=== PATIENT | male | born 1935 | race Caucasian/White ===

== ENCOUNTER 2020-10-28 10:38 | Emergency (ER) | payer MEDICARE, BC ==
--- NOTE | 2020-10-28 11:03 | EDM.PDOC ---
ED HPI GENERAL MEDICAL PROBLEM - General Chief Complaint: Chest Pain Stated Complaint: SOB AND CHEST PRESSURE Time Seen by Provider: 10/28/20 11:00 - History of Present Illness INITIAL COMMENTS - FREE TEXT/NARRATIVE: 85-year-old male presents the emergency room with shortness of breath. This is been getting worse over the last week but is been kind of an ongoing issue for quite a long time. About a year and a half ago the patient had a valve procedure done without a valve replacement and this helped somewhat. He was seen by his regular physician not long ago and was told he had fluid around his heart and was started on a water pill this seems to be helping somewhat but again over the last week or so it has been getting worse. The patient does not know exactly what medications he is taking or what water pill he is taking. It appears the patient is on Plavix and aspirin from his old records were trying to get pharmacy reports of what medications he is currently taking. Middle Chest Pain Score (Numeric/FACES): 5 - Related Data Allergies Allergy/AdvReac Type Severity Reaction Status Date / Time No Known Allergies Allergy Verified 02/20/16 14:55 Home Meds: Home Meds Insulin Glarg,Human.Rec.Analog [Lantus] 10 unit SUBCUT QAM 05/10/14 [History] Levothyroxine [Synthroid] 112 mcg PO DAILY 05/10/14 [History] Tamsulosin [Flomax] 0.4 mg PO BID 05/10/14 [History] allopurinoL [Zyloprim] 50 mg PO DAILY 05/10/14 [History] Calc/D3/Mag/Zn/Kristin/Mc/Thoreau [Calcium 600 MG Plus Vit D] 1 tab PO DAILY 03/17/15 [History] Finasteride [Proscar] 5 mg PO DAILY 03/20/15 [History] Insulin Aspart [NovoLOG] 5 unit SQ TID 04/19/15 [History] Aspirin [Ecotrin EC] 81 mg PO DAILY 02/19/16 [History] Acetaminophen [Tylenol] 650 mg PO Q6H PRN #0 tablet 02/22/16 [Rx] Doxycycline [Vibramycin] 100 mg PO BID #14 tab 10/28/20 [Rx] Furosemide [Lasix] 40 mg PO DAILY 10/28/20 [History] Losartan [Cozaar] 50 mg PO DAILY 10/28/20 [History] Metoprolol Succinate [Toprol XL] 25 mg PO DAILY 10/28/20 [History] Sodium Bicarbonate 325 mg PO BID 10/28/20 [History] Past Medical History Other HEENT History: wears glasses, has upper partial Cardiovascular History: Reports: High Cholesterol, Hypertension Other Cardiovascular History: carotid artery occulsion and stenosis, murmur Other Gastrointestinal History: ostomy revision, colon resection Other Genitourinary History: renal insufficiency, urinary retention Neurological History: Reports: CVA, TIA Endocrine/Metabolic History: Reports: Diabetes, Type II, Hypothyroidism Oncologic (Cancer) History: Reports: Colon Other Dermatologic History: Pre-cancer lesion froze off recently - Infectious Disease History Infectious Disease History: Reports: Chicken Pox - Past Surgical History HEENT Surgical History: Reports: Cataract Surgery GI Surgical History: Reports: Colostomy Other Musculoskeletal Surgeries/Procedures:: back surgery 2004, carpal tunnel surgery 2013 Social & Family History - Family History Family Medical History: No Pertinent Family History ED ROS GENERAL - Review of Systems Review Of Systems: See Below Constitutional: Reports: No Symptoms HEENT: Reports: No Symptoms Respiratory: Reports: Shortness of Breath Cardiovascular: Reports: Chest Pain (Intermittent chest discomfort seems to be related to the shortness of breath) GI/Abdominal: Reports: No Symptoms : Reports: No Symptoms Musculoskeletal: Reports: No Symptoms Skin: Reports: No Symptoms Neurological: Reports: No Symptoms Psychiatric: Reports: No Symptoms Hematologic/Lymphatic: Reports: No Symptoms Immunologic: Reports: No Symptoms ED EXAM, GENERAL - Physical Exam Exam: See Below Exam Limited By: No Limitations General Appearance: Alert, No Apparent Distress Head: Atraumatic, Normocephalic Neck: Normal Inspection, Supple, Non-Tender, Full Range of Motion. No: Lymphadenopathy (L), Lymphadenopathy (R) Respiratory/Chest: No Respiratory Distress, Lungs Clear, Normal Breath Sounds Cardiovascular: Regular Rate, Rhythm, No Murmur, Other (1+ lower extremity pitting edema) GI/Abdominal: Normal Bowel Sounds, Soft, Non-Tender Back Exam: Normal Inspection, CVA Tenderness (L), Other (No presacral edema). No: CVA Tenderness (R) Extremities: Other (1+ pitting edema of the lower extremities) Course - Vital Signs Last Recorded V/S: Last Vital Signs Temp 36.4 C 10/28/20 10:53 Pulse 73 10/28/20 10:53 Resp 24 H 10/28/20 10:53 BP 185/93 H 10/28/20 10:53 Pulse Ox 98 10/28/20 10:53 - Orders/Labs/Meds Labs: Laboratory Tests 10/28/20 10/28/20 10/28/20 Range/Units 10:55 10:55 10:55 WBC 6.39 (4.23-9.07) K/mm3 RBC 5.25 (4.63-6.08) M/mm3 Hgb 15.4 D (13.7-17.5) gm/dl Hct 48.8 (40.1-51.0) % MCV 93.0 H D (79.0-92.2) fl MCH 29.3 (25.7-32.2) pg MCHC 31.6 L (32.2-35.5) g/dl RDW Std Deviation 45.6 H (35.1-43.9) fL Plt Count 169 (163-337) K/mm3 MPV 11.1 (9.4-12.3) fl Neut % (Auto) 74.0 H (34.0-67.9) % Lymph % (Auto) 12.4 L (21.8-53.1) % [place] % (Auto) 11.4 (5.3-12.2) % Eos % (Auto) 1.6 (0.8-7.0) Baso % (Auto) 0.6 (0.1-1.2) % Neut # (Auto) 4.73 (1.78-5.38) K/mm3 Lymph # (Auto) 0.79 L (1.32-3.57) K/mm3 [place] # (Auto) 0.73 (0.30-0.82) K/mm3 Eos # (Auto) 0.10 (0.04-0.54) K/mm3 Baso # (Auto) 0.04 (0.01-0.08) K/mm3 PT 11.6 (9.7-12.0) SECONDS INR 1.09 APTT 27.3 (21.7-31.4) SECONDS Sodium 143 (136-145) mEq/L Potassium 4.2 (3.5-5.1) mEq/L Chloride 107 (98-107) mEq/L Carbon Dioxide 28 (21-32) mEq/L Anion Gap 12.2 (5-15) BUN 32 H (7-18) mg/dL Creatinine 2.3 H (0.7-1.3) mg/dL Est Cr Clr Drug Dosing 24.69 mL/min Estimated GFR (MDRD) 27 (>60) mL/min BUN/Creatinine Ratio 13.9 L (14-18) Glucose 144 H (83-115) mg/dL Calcium 8.5 (8.5-10.1) mg/dL Total Bilirubin 1.0 (0.2-1.0) mg/dL AST 18 (15-37) U/L ALT 16 (16-63) U/L Alkaline Phosphatase 156 H (46-116) U/L Troponin I 0.144 H* (0.00-0.056) ng/mL NT-Pro-B Natriuret Pep (0-450) pg/mL Total Protein 7.0 (6.4-8.2) g/dl Albumin 3.3 L (3.4-5.0) g/dl Globulin 3.7 gm/dL Albumin/Globulin Ratio 0.9 L (1-2) 10/28/20 10/28/20 Range/Units 10:55 13:28 WBC (4.23-9.07) K/mm3 RBC (4.63-6.08) M/mm3 Hgb (13.7-17.5) gm/dl Hct (40.1-51.0) % MCV (79.0-92.2) fl MCH (25.7-32.2) pg MCHC (32.2-35.5) g/dl RDW Std Deviation (35.1-43.9) fL Plt Count (163-337) K/mm3 MPV (9.4-12.3) fl Neut % (Auto) (34.0-67.9) % Lymph % (Auto) (21.8-53.1) % [place] % (Auto) (5.3-12.2) % Eos % (Auto) (0.8-7.0) Baso % (Auto) (0.1-1.2) % Neut # (Auto) (1.78-5.38) K/mm3 Lymph # (Auto) (1.32-3.57) K/mm3 [place] # (Auto) (0.30-0.82) K/mm3 Eos # (Auto) (0.04-0.54) K/mm3 Baso # (Auto) (0.01-0.08) K/mm3 PT (9.7-12.0) SECONDS INR APTT (21.7-31.4) SECONDS Sodium (136-145) mEq/L Potassium (3.5-5.1) mEq/L Chloride (98-107) mEq/L Carbon Dioxide (21-32) mEq/L Anion Gap (5-15) BUN (7-18) mg/dL Creatinine (0.7-1.3) mg/dL Est Cr Clr Drug Dosing mL/min Estimated GFR (MDRD) (>60) mL/min BUN/Creatinine Ratio (14-18) Glucose (83-115) mg/dL Calcium (8.5-10.1) mg/dL Total Bilirubin (0.2-1.0) mg/dL AST (15-37) U/L ALT (16-63) U/L Alkaline Phosphatase (46-116) U/L Troponin I 0.155 H* (0.00-0.056) ng/mL NT-Pro-B Natriuret Pep 17618 H (0-450) pg/mL Total Protein (6.4-8.2) g/dl Albumin (3.4-5.0) g/dl Globulin gm/dL Albumin/Globulin Ratio (1-2) Meds: Medications Discontinued Medications Generic Name Dose Route Start Last Admin Trade Name Freq PRN Reason Stop Dose Admin Doxycycline Hyclate 100 mg 10/28/20 13:44 Vibramycin PO 10/28/20 13:45 ONETIME ONE Furosemide 40 mg 10/28/20 12:43 10/28/20 12:59 Lasix IVPUSH 10/28/20 12:44 40 mg NOW ONE Administration - Re-Assessments/Exams Free Text/Narrative Re-Assessment/Exam: 10/28/20 12:10 We are still trying to find his most accurate medication list. The patient troponin came back modestly elevated at 0.144, however the patient has no active chest pain at this time. Also the patient has not had his chest x-ray as of yet. 10/28/20 12:54 According to his pharmacy records he takes 40 mg of Lasix daily I will give him 40 mg of IV Lasix to see if this helps with the shortness of breath at this point. 10/28/20 13:[address] Rainey on-call alternative education teacher at [facility] in [place]. I have informed him of the one-time Lasix dose and dosing and recheck another troponin if he is not trending upward and he gets relief after the Lasix I was planning on discharging him back home with outpatient follow-up with cardiology. Dr. Rainey is in agreement to this treatment plan. 10/28/20 13:43 X-ray is equivocal for CHF however he is got what looks like a left lower lobe infiltrate developing we will start him on doxycycline for this. 10/28/20 14:21 Patient's troponin went up ever so slightly to 0.155 from 0.144. The patient really wants to go home at this time I discussed the patient's case again with Dr. Rainey who thinks it safe for the patient to go home however we both agree that the patient should follow-up with Dr. Holcomb of his regular alternative education teacher this next week. However, the patient is doing much better after getting the single dose of Lasix. He is breathing easier he is able to get some rest he feels much better. Departure - Departure Time of Disposition: 14:22 Disposition: Home, Self-Care 01 Clinical Impression: Shortness of breath, Congestive heart failure, Pneumonia, Renal insufficiency Referrals: Akua Barriga MD [Primary Care Provider] - Forms: ED Department Discharge Additional Instructions: Return to the emergency room with any questions problems or worsening symptoms. You have been started on an antibiotic for possible developing pneumonia. Take this 1 twice daily until all gone. While taking this stop your calcium supplements. Your troponin, which is a marker for potential heart damage, has gone up slightly. I have reviewed this with cardiology at [facility]. And it is recommended that you follow-up with Dr. Gonzales this next week. Sepsis Event Note (ED) - Evaluation Sepsis Screening Result: No Definite Risk - Focused Exam Vital Signs: Vital Signs Temp Pulse Pulse Resp BP Pulse Ox 10/28/20 10:53 36.4 C 61 73 24 H 185/93 H 98
[2020-10-28] MEDS ORDERED: Furosemide 40 MG/4 ML VIAL IVPUSH ONE (12:43)
--- NOTE | 2020-10-28 13:09 | CR ---
Chest: Portable view of the chest was obtained. Comparison: No prior chest imaging is available. Findings: Lungs: Focal density is seen within the medial right lung base. Lungs otherwise are clear. Heart and mediastinum: Heart size and mediastinum are within normal limits for portable technique. No mediastinal mass is seen. Bone windows show slight degenerative change within the acromioclavicular joints without acute bony abnormality being seen. Impression: 1. Increased density within the medial right lung base most likely representing pneumonia. 2. Other findings believed to be incidental. Diagnostic code #3
[2020-10-28] MEDS ORDERED: Doxycycline 100 MG Cap PO ONE (13:44)
[2020-10-28 14:44] VITALS: BP 158/82; PULSE 70
== END 2020-10-28 14:44 | disposition home or self-care (01) ==
LOC: JD.ED 10:38
DX: J18.9 Pneumonia, unspecified organism (principal); I11.0 Hypertensive heart disease with heart failure; I50.9 Heart failure, unspecified; N28.9 Disorder of kidney and ureter, unspecified; E11.9 Type 2 diabetes mellitus without complications; E03.9 Hypothyroidism, unspecified; Z86.73 Personal history of transient ischemic attack (TIA), and cerebral infarction without residual deficits; Z79.82 Long term (current) use of aspirin; Z79.899 Other long term (current) drug therapy; Z79.4 Long term (current) use of insulin
CPT/HCPCS: 36415; 71045; 80053; 83880; 84484; 85025; 85610; 85730; 96374; 99285; A9270; J1940; 93010; 99284

== ENCOUNTER 2020-12-25 10:40 | Emergency (ER) | payer MEDICARE, BC ==
--- NOTE | 2020-12-25 11:59 | EDM.PDOC ---
ED HPI GENERAL MEDICAL PROBLEM - General Chief Complaint: Respiratory Problem Stated Complaint: COVID SYMPTOMS/SOB Time Seen by Provider: 12/25/20 11:08 Source of Information: Reports: Patient, RN Notes Reviewed History Limitations: Reports: No Limitations - History of Present Illness INITIAL COMMENTS - FREE TEXT/NARRATIVE: Patient is an 85-year-old male presenting to the emergency department with complaints of ongoing shortness of breath and an episode of chest pressure with worsening shortness of breath this morning. This morning, he got up and was walking on his treadmill and states he did fine with this. He then was putting sheets back on his bed when he became quite short of breath and felt some mild pressure in his chest. He has a long hx of SOB for years as well as fluid around his heart in October which was treated with an increased dose of Lasix. Pt states that he thought this could be occuring again; therefore, he took an extra half tab of Lasix in addition to his normal full 40 mg tablet which would equal a total of 60 mg of Lasix today. After resting, the symptoms resolved. Of note, pt was diagnosed with Covid 3 weeks ago. He states that he was asymptomatic with the illness, however he feels like he has been slightly more short of breath. He denies any chest pain or shortness of breath at this time. - Related Data Allergies Allergy/AdvReac Type Severity Reaction Status Date / Time No Known Allergies Allergy Verified 02/20/16 14:55 Home Meds: Home Meds Insulin Glarg,Human.Rec.Analog [Lantus] 10 unit SUBCUT QAM 05/10/14 [History] Levothyroxine [Synthroid] 112 mcg PO DAILY 05/10/14 [History] Tamsulosin [Flomax] 0.4 mg PO BID 05/10/14 [History] allopurinoL [Zyloprim] 50 mg PO DAILY 05/10/14 [History] Calc/D3/Mag/Zn/Kristin/Mc/Knapp [Calcium 600 MG Plus Vit D] 1 tab PO DAILY 03/17/15 [History] Finasteride [Proscar] 5 mg PO DAILY 03/20/15 [History] Insulin Aspart [NovoLOG] 5 unit SQ TID 04/19/15 [History] Aspirin [Ecotrin EC] 81 mg PO DAILY 02/19/16 [History] Acetaminophen [Tylenol] 650 mg PO Q6H PRN #0 tablet 02/22/16 [Rx] Doxycycline [Vibramycin] 100 mg PO BID #14 tab 10/28/20 [Rx] Furosemide [Lasix] 40 mg PO DAILY 10/28/20 [History] Losartan [Cozaar] 50 mg PO DAILY 10/28/20 [History] Metoprolol Succinate [Toprol XL] 25 mg PO DAILY 10/28/20 [History] Sodium Bicarbonate 325 mg PO BID 10/28/20 [History] Past Medical History Other HEENT History: wears glasses, has upper partial Cardiovascular History: Reports: High Cholesterol, Hypertension Other Cardiovascular History: carotid artery occulsion and stenosis, murmur Other Gastrointestinal History: ostomy revision, colon resection Other Genitourinary History: renal insufficiency, urinary retention Neurological History: Reports: CVA, TIA Endocrine/Metabolic History: Reports: Diabetes, Type II, Hypothyroidism Oncologic (Cancer) History: Reports: Colon Other Dermatologic History: Pre-cancer lesion froze off recently - Infectious Disease History Infectious Disease History: Reports: Chicken Pox, Novel Coronavirus - Past Surgical History HEENT Surgical History: Reports: Cataract Surgery GI Surgical History: Reports: Colostomy Other Musculoskeletal Surgeries/Procedures:: back surgery 2004, carpal tunnel surgery 2013 Social & Family History - Family History Family Medical History: No Pertinent Family History - Tobacco Use Tobacco Use Status *Q: Never Tobacco User Second Hand Smoke Exposure: No - Caffeine Use Caffeine Use: Reports: None - Recreational Drug Use Recreational Drug Use: No ED ROS GENERAL - Review of Systems Review Of Systems: See Below Constitutional: Reports: No Symptoms. Denies: Fever, Chills, Weakness HEENT: Reports: No Symptoms Respiratory: Reports: Shortness of Breath. Denies: Wheezing, Cough Cardiovascular: Reports: Dyspnea on Exertion, Other (Mild chest pressure). Denies: Lightheadedness, Palpitations, Syncope Endocrine: Reports: No Symptoms GI/Abdominal: Reports: No Symptoms : Reports: No Symptoms Musculoskeletal: Reports: No Symptoms Skin: Reports: No Symptoms Neurological: Reports: No Symptoms Psychiatric: Reports: No Symptoms Hematologic/Lymphatic: Reports: No Symptoms Immunologic: Reports: No Symptoms ED EXAM, GENERAL - Physical Exam Exam: See Below General Appearance: Alert, WD/WN, No Apparent Distress Respiratory/Chest: No Respiratory Distress, Lungs Clear, No Accessory Muscle Use, Chest Non-Tender, Other (Diminished in the right lower lobe) Cardiovascular: Normal Peripheral Pulses, Regular Rate, Rhythm, No Edema, No Gallop, No JVD, No Murmur, No Rub GI/Abdominal: Normal Bowel Sounds, Soft, Non-Tender, No Organomegaly, No Distention, No Abnormal Bruit, No Mass Neurological: Alert, Oriented, CN II-XII Intact, Normal Cognition, Normal Gait, Normal Reflexes, No Motor/Sensory Deficits Psychiatric: Normal Affect, Normal Mood Skin Exam: Warm, Dry, Intact, Normal Color, No Rash #1 Interpretation EKG Date: 12/25/20 Time: 11:16 Rhythm: NSR Rate (Beats/Min): 64 [place]: Normal P-Wave: Present QRS: Normal ST-T: Normal QT: Normal Course - Vital Signs Last Recorded V/S: Last Vital Signs Temp 97.7 F 12/25/20 10:54 Pulse 65 12/25/20 10:54 Resp 18 12/25/20 10:54 BP 164/79 H 12/25/20 10:54 Pulse Ox 97 12/25/20 10:54 - Orders/Labs/Meds Orders: Active Orders 24 hr Category Date Time Status EKG Documentation Completion [RC] STAT Care 12/25/20 11:12 Active Sodium Chloride 0.9% [Normal Saline] 100 ml Med 12/25/20 13:00 Active IV ASDIRECTED Sodium Chloride 0.9% [Saline Flush] Med 12/25/20 13:00 Active 10 ml FLUSH ONETIME PRN Medication Orders Sodium Chloride (Normal Saline) 100 mls @ 75 mls/hr IV ASDIRECTED ALEKSEY Last Admin: 12/25/20 13:31 Dose: 75 mls/hr Documented by: OLAMIDE Sodium Chloride (Saline Flush) 10 ml FLUSH ONETIME PRN PRN Reason: IV FLUSH Last Admin: 12/25/20 13:31 Dose: 10 ml Documented by: OLAMIDE Labs: Laboratory Tests 12/25/20 12/25/20 12/25/20 Range/Units 11:12 11:12 11:35 WBC 6.07 (4.23-9.07) K/mm3 RBC 4.75 (4.63-6.08) M/mm3 Hgb 13.7 D (13.7-17.5) gm/dl Hct 43.4 (40.1-51.0) % MCV 91.4 (79.0-92.2) fl MCH 28.8 (25.7-32.2) pg MCHC 31.6 L (32.2-35.5) g/dl RDW Std Deviation 47.6 H (35.1-43.9) fL Plt Count 142 L (163-337) K/mm3 MPV 10.7 (9.4-12.3) fl Neut % (Auto) 73.0 H (34.0-67.9) % Lymph % (Auto) 13.3 L (21.8-53.1) % [place] % (Auto) 10.7 (5.3-12.2) % Eos % (Auto) 2.0 (0.8-7.0) Baso % (Auto) 0.8 (0.1-1.2) % Neut # (Auto) 4.43 (1.78-5.38) K/mm3 Lymph # (Auto) 0.81 L (1.32-3.57) K/mm3 [place] # (Auto) 0.65 (0.30-0.82) K/mm3 Eos # (Auto) 0.12 (0.04-0.54) K/mm3 Baso # (Auto) 0.05 (0.01-0.08) K/mm3 D-Dimer, Quantitative 1.59 H (0.19-0.50) mg/L Sodium 142 (136-145) mEq/L Potassium 4.3 (3.5-5.1) mEq/L Chloride 107 (98-107) mEq/L Carbon Dioxide 28 (21-32) mEq/L Anion Gap 11.3 (5-15) BUN 29 H (7-18) mg/dL Creatinine 2.1 H (0.7-1.3) mg/dL Est Cr Clr Drug Dosing 28.74 mL/min Estimated GFR (MDRD) 30 (>60) mL/min BUN/Creatinine Ratio 13.8 L (14-18) Glucose 202 H (83-115) mg/dL Calcium 8.1 L (8.5-10.1) mg/dL Total Bilirubin 1.0 (0.2-1.0) mg/dL AST 35 (15-37) U/L ALT 26 (16-63) U/L Alkaline Phosphatase 149 H (46-116) U/L Troponin I 0.123 H* (0.00-0.056) ng/mL C-Reactive Protein 1.2 H* (<1.0) mg/dL NT-Pro-B Natriuret Pep (0-450) pg/mL Total Protein 6.4 (6.4-8.2) g/dl Albumin 2.8 L (3.4-5.0) g/dl Globulin 3.6 gm/dL Albumin/Globulin Ratio 0.8 L (1-2) 12/25/20 12/25/20 Range/Units 11:35 13:47 WBC (4.23-9.07) K/mm3 RBC (4.63-6.08) M/mm3 Hgb (13.7-17.5) gm/dl Hct (40.1-51.0) % MCV (79.0-92.2) fl MCH (25.7-32.2) pg MCHC (32.2-35.5) g/dl RDW Std Deviation (35.1-43.9) fL Plt Count (163-337) K/mm3 MPV (9.4-12.3) fl Neut % (Auto) (34.0-67.9) % Lymph % (Auto) (21.8-53.1) % [place] % (Auto) (5.3-12.2) % Eos % (Auto) (0.8-7.0) Baso % (Auto) (0.1-1.2) % Neut # (Auto) (1.78-5.38) K/mm3 Lymph # (Auto) (1.32-3.57) K/mm3 [place] # (Auto) (0.30-0.82) K/mm3 Eos # (Auto) (0.04-0.54) K/mm3 Baso # (Auto) (0.01-0.08) K/mm3 D-Dimer, Quantitative (0.19-0.50) mg/L Sodium (136-145) mEq/L Potassium (3.5-5.1) mEq/L Chloride (98-107) mEq/L Carbon Dioxide (21-32) mEq/L Anion Gap (5-15) BUN (7-18) mg/dL Creatinine (0.7-1.3) mg/dL Est Cr Clr Drug Dosing mL/min Estimated GFR (MDRD) (>60) mL/min BUN/Creatinine Ratio (14-18) Glucose (83-115) mg/dL Calcium (8.5-10.1) mg/dL Total Bilirubin (0.2-1.0) mg/dL AST (15-37) U/L ALT (16-63) U/L Alkaline Phosphatase (46-116) U/L Troponin I 0.129 H* (0.00-0.056) ng/mL C-Reactive Protein (<1.0) mg/dL NT-Pro-B Natriuret Pep 39663 H (0-450) pg/mL Total Protein (6.4-8.2) g/dl Albumin (3.4-5.0) g/dl Globulin gm/dL Albumin/Globulin Ratio (1-2) Meds: Medications Generic Name Dose Route Start Last Admin Trade Name Freq PRN Reason Stop Dose Admin Sodium Chloride 100 mls @ 75 mls/hr 12/25/20 13:00 12/25/20 13:31 Normal Saline IV 75 mls/hr ASDIRECTED ALEKSEY Administration Sodium Chloride 10 ml 12/25/20 13:00 12/25/20 13:31 Saline Flush FLUSH 10 ml ONETIME PRN Administration IV FLUSH Discontinued Medications Generic Name Dose Route Start Last Admin Trade Name Freq PRN Reason Stop Dose Admin Iopamidol 100 ml 12/25/20 13:00 12/25/20 13:31 [id number] (76%) IVPUSH 12/25/20 13:01 100 ml ONETIME ONE Administration - Re-Assessments/Exams Free Text/Narrative Re-Assessment/Exam: 12/25/20 12:42 Hematology was significant for D-dimer elevated at 1.59, BUN 29, creatinine 2.1, glucose 202, alkaline phosphatase 149, troponin 0 0.123, CRP 1.2, proBNP 14,981. EKG shows no acute ischemia. Chest x-ray shows slight increase in right-sided pleural effusion and a minimal left-sided pleural effusion. Given patient's history of Covid and significant elevation in D-dimer, I have ordered a CT angiogram of the chest. He is already taken an extra 20 mg dose of Lasix at home and is not having any chest pain or shortness of breath at this time. I suspect his elevation in troponin is related to his congestive heart failure. We will repeat a troponin II hours after the original draw. Once results are available, I will contact cardiology at [facility] in [place] to discuss his case. 12/25/20 13:43 Patient has been voiding large amounts of dilute urine. He continues to deny any chest pain or shortness of breath at this time. 12/25/20 15:01 Repeat troponin was 0.129. Called and spoke with the interlocking tower operator on-call at [facility], Dr. Rainey. He states that the elevation in troponin is likely due to his congestive heart failure. He recommends that he increase his Lasix to 60 mg daily for the next 3 days and then follow-up with his primary care provider. Discussed this with the patient and he is in agreement. Discharge instructions as documented. Departure - Departure Time of Disposition: 15:07 Disposition: Home, Self-Care 01 Condition: Good Clinical Impression: Congestive heart failure Qualifiers: Heart failure type: unspecified Heart failure chronicity: acute on chronic Qualified Code(s): I50.9 - Heart failure, unspecified - Discharge Information *PRESCRIPTION DRUG MONITORING PROGRAM REVIEWED*: No *COPY OF PRESCRIPTION DRUG MONITORING REPORT IN PATIENT MYRTLE: No Instructions: Shortness of Breath, Adult, [id number], Heart Failure, Self Care, [id number] Referrals: Akua Barriga MD [Primary Care Provider] - Maddison Velazquez PA-C [Ordering Only Provider] - Forms: ED Department Discharge Additional Instructions: You were seen in the emergency department today for increased shortness of breath as well as an episode of pressure in your chest. Work-up included blood work, EKG, chest x-ray, and a CT angiogram your chest. Results of your work-up indicate that your symptoms are likely coming from your congestive heart failure. Your case was discussed with the interlocking tower operator at [facility], Dr. Rainey. Recommendation is to increase your Lasix to 60 mg for the next 3 days. He already took this medication today, so tomorrow and the next day he should take 60 mg as well. Follow-up with your primary care provider, Dr. Barriga, on or Friday of this week for recheck. Return to ER for any new or worsening symptoms of concern. Sepsis Event Note (ED) - Evaluation Sepsis Screening Result: No Definite Risk - Focused Exam Vital Signs: Vital Signs Temp Pulse Resp BP Pulse Ox 12/25/20 10:54 97.7 F 65 18 164/79 H 97 - My Orders Last 24 Hours: My Active Orders 12/25/20 11:12 EKG Documentation Completion [RC] STAT 12/25/20 13:00 Sodium Chloride 0.9% [Normal Saline] 100 ml IV ASDIRECTED Sodium Chloride 0.9% [Saline Flush] 10 ml FLUSH ONETIME PRN - Assessment/Plan Last 24 Hours: My Active Orders 12/25/20 11:12 EKG Documentation Completion [RC] STAT 12/25/20 13:00 Sodium Chloride 0.9% [Normal Saline] 100 ml IV ASDIRECTED Sodium Chloride 0.9% [Saline Flush] 10 ml FLUSH ONETIME PRN
--- NOTE | 2020-12-25 12:24 | CR ---
Chest: 2 views of the chest were obtained. Comparison: Prior chest x-ray of 10/28/20. Slight increasing right-sided pleural effusion is noted from prior study. Minimal blunting of the lateral left costophrenic angle is seen compatible with additional pleural effusion. Slight thick area of atelectasis appears to be present within the right lung base. Lungs otherwise are clear. Heart size is slightly enlarged. Bony structures appear within normal limits for patient's age. Aortic stent is present. Impression: 1. Slight increasing right-sided pleural effusion and minimal left-sided pleural effusion. 2. Other findings within the chest are stable. Diagnostic code #3
[2020-12-25] MEDS ORDERED: Iopamidol 755 Mg/ML 100 ML Bottle IVPUSH ONE (13:00)
[2020-12-25] MEDS ORDERED: Sodium Chloride 0.9% 100 ML IV SCH (13:00)
[2020-12-25] MEDS ORDERED: Sodium Chloride 0.9% 10 ML Syringe FLUSH PRN (13:00)
--- NOTE | 2020-12-25 13:55 | CT ---
CT chest Technique: Multiple axial sections through the chest were obtained. Intravenous contrast was utilized as a pulmonary angiogram protocol. Findings: Pulmonary arteries are well opacified. There are no filling defects seen to indicate pulmonary embolism. There is a fairly large right-sided pleural effusion being seen with a smaller left-sided pleural effusion. Thoracic aorta shows an ascending aortic stent. No aneurysm is seen. Thoracic aorta shows atherosclerotic calcification. Slightly prominent lymph nodes are seen within the mediastinum. Slightly prominent axillary lymph nodes on both sides are noted. Patchy areas of increased density are noted within the right upper lung as well as minimal areas of increased density within the left upper lung. Areas of atelectasis are noted next to the pleural effusions which is worse on the right side. Small portion of the visualized upper abdominal structures show no discrete abnormality. Bone window settings were reviewed which show no acute osseous finding. Mild scattered degenerative change is noted within the spine. Impression: 1. Fairly large right-sided pleural effusion and small left-sided pleural effusion. 2. Focal area of presumed atelectasis within the right lung base. 3. Slightly prominent mediastinal adenopathy as well as minimally prominent bilateral hilar adenopathy. These lymph nodes are nonspecific regarding etiology. Diagnostic code #3
[2020-12-25 15:34] VITALS: BP 135/80; PULSE 79
== END 2020-12-25 15:15 | disposition home or self-care (01) ==
LOC: JD.ED 10:40
DX: I11.0 Hypertensive heart disease with heart failure (principal); I50.9 Heart failure, unspecified; E11.9 Type 2 diabetes mellitus without complications; E03.9 Hypothyroidism, unspecified; Z79.82 Long term (current) use of aspirin; Z79.899 Other long term (current) drug therapy; Z79.4 Long term (current) use of insulin; Z86.73 Personal history of transient ischemic attack (TIA), and cerebral infarction without residual deficits
CPT/HCPCS: 36415; 71046; 71275; 80053; 83880; 84484; 85025; 85379; 86140; 93005; 99285; Q9967; 93010; 99284

== ENCOUNTER 2021-06-05 08:14 | Emergency (ER) | payer MEDICARE, BC ==
[2021-06-05 08:38] VITALS: BP 181/80; PULSE 80
--- NOTE | 2021-06-05 09:03 | EDM.PDOC ---
ED HPI GENERAL MEDICAL PROBLEM - General Chief Complaint: Respiratory Problem Stated Complaint: SOB AND UNABLE TO URINATE Time Seen by Provider: 06/05/21 08:58 - History of Present Illness INITIAL COMMENTS - FREE TEXT/NARRATIVE: 86-year-old male presents the emergency room with some shortness of breath. And he also feels that he is not able to void the way he should. The patient is treated for congestive heart failure. He uses Lasix as directed. His urine output has significantly decreased. He is drinking lots of fluids. Denies any chest pain chest pressure no worsening edema. Patient has no discomfort and suprapubic discomfort he is able to void he just does not have anything to void. At this time he just has his perception that he is not breathing well and he is not voiding adequately. - Related Data Allergies Allergy/AdvReac Type Severity Reaction Status Date / Time No Known Allergies Allergy Verified 06/05/21 08:38 Home Meds: Home Meds Insulin Glarg,Human.Rec.Analog [Lantus] 18 unit SUBCUT QAM 05/10/14 [History] Levothyroxine [Synthroid] 112 mcg PO DAILY 05/10/14 [History] Tamsulosin [Flomax] 0.4 mg PO BID 05/10/14 [History] allopurinoL [Zyloprim] 50 mg PO DAILY 05/10/14 [History] Finasteride [Proscar] 5 mg PO DAILY 03/20/15 [History] Insulin Aspart [NovoLOG] 5 unit SQ TID 04/19/15 [History] Aspirin [Ecotrin EC] 81 mg PO DAILY 02/19/16 [History] Furosemide [Lasix] 20 mg PO DAILY 10/28/20 [History] Losartan [Cozaar] 50 mg PO DAILY 10/28/20 [History] Metoprolol Succinate [Toprol XL] 25 mg PO DAILY 10/28/20 [History] Sodium Bicarbonate 325 mg PO BID 10/28/20 [History] atorvaSTATin [Lipitor] 40 mg PO DAILY 06/05/21 [History] Past Medical History Other HEENT History: wears glasses, has upper partial Cardiovascular History: Reports: High Cholesterol, Hypertension Other Cardiovascular History: carotid artery occulsion and stenosis, murmur Other Gastrointestinal History: ostomy revision, colon resection Other Genitourinary History: renal insufficiency, urinary retention Neurological History: Reports: CVA, TIA Endocrine/Metabolic History: Reports: Diabetes, Type II, Hypothyroidism Oncologic (Cancer) History: Reports: Colon Other Dermatologic History: Pre-cancer lesion froze off recently - Infectious Disease History Infectious Disease History: Reports: Chicken Pox, Novel Coronavirus - Past Surgical History HEENT Surgical History: Reports: Cataract Surgery GI Surgical History: Reports: Colostomy Other Musculoskeletal Surgeries/Procedures:: back surgery 2005, carpal tunnel surgery 2013 Social & Family History - Family History Family Medical History: No Pertinent Family History - Caffeine Use Caffeine Use: Reports: None ED ROS GENERAL - Review of Systems Review Of Systems: See Below Constitutional: Reports: No Symptoms HEENT: Reports: No Symptoms Respiratory: Reports: Shortness of Breath, Cough (Chronic unchanged). Denies: Wheezing, Pleuritic Chest Pain Cardiovascular: Reports: Edema (Trace edema this is normal for him). Denies: Chest Pain Endocrine: Reports: No Symptoms GI/Abdominal: Reports: No Symptoms : Denies: Dysuria Musculoskeletal: Reports: No Symptoms Skin: Reports: No Symptoms Neurological: Reports: No Symptoms ED EXAM, GENERAL - Physical Exam Exam: See Below Exam Limited By: No Limitations General Appearance: Alert, No Apparent Distress Head: Atraumatic, Normocephalic Neck: Normal Inspection, Supple, Other (No JVD). No: Lymphadenopathy (L), Lymphadenopathy (R) Respiratory/Chest: No Respiratory Distress, Lungs Clear, Normal Breath Sounds Cardiovascular: Regular Rate, Rhythm, No Murmur, Other (Trace lower extremity edema subtle pitting) GI/Abdominal: Normal Bowel Sounds, Soft, Non-Tender Back Exam: Normal Inspection. No: CVA Tenderness (L), CVA Tenderness (R) Extremities: Normal Inspection, Normal Range of Motion, Non-Tender, Pedal Edema (Trace minimal pitting this is normal for him) Neurological: Alert, Oriented, Normal Cognition #1 Interpretation EKG Date: 06/05/21 Rhythm: NSR Orchard: LAD-Left Orchard Deviation P-Wave: Present (First-degree AV block) QRS: Other (Interventricular conduction delay Q waves inferiorly) ST-T: Other (No acute changes) Comparison: No Change (No significant change from December [address] T wave changes are improved on today's study) EKG Interpretation Comments: Abnormal baseline artifact Course - Vital Signs Last Recorded V/S: Last Vital Signs Temp 36.4 C 07/13/21 08:34 Pulse 80 06/05/21 08:34 Resp 18 06/05/21 08:34 BP 181/80 H 06/05/21 08:34 Pulse Ox 99 06/05/21 08:34 - Orders/Labs/Meds Orders: Active Orders 24 hr Category Date Time Status EKG Documentation Completion [RC] STAT Care 06/05/21 09:04 Active UA RFX OCTAVIO AND CULT IF INDIC [URIN] Stat Lab 06/05/21 12:48 Ordered Labs: Laboratory Tests 06/05/21 06/05/21 06/05/21 Range/Units 09:16 09:16 09:16 WBC 6.61 (4.23-9.07) K/mm3 RBC 4.44 L (4.63-6.08) M/mm3 Hgb 12.8 L (13.7-17.5) gm/dl Hct 40.6 (40.1-51.0) % MCV 91.4 (79.0-92.2) fl MCH 28.8 (25.7-32.2) pg MCHC 31.5 L (32.2-35.5) g/dl RDW Std Deviation 48.5 H (35.1-43.9) fL Plt Count 188 (163-337) K/mm3 MPV 10.2 (9.4-12.3) fl Neut % (Auto) 79.9 H (34.0-67.9) % Lymph % (Auto) 8.0 L (21.8-53.1) % Vernon % (Auto) 10.4 (5.3-12.2) % Eos % (Auto) 0.9 (0.8-7.0) Baso % (Auto) 0.6 (0.1-1.2) % Neut # (Auto) 5.28 (1.78-5.38) K/mm3 Lymph # (Auto) 0.53 L (1.32-3.57) K/mm3 Vernon # (Auto) 0.69 (0.30-0.82) K/mm3 Eos # (Auto) 0.06 (0.04-0.54) K/mm3 Baso # (Auto) 0.04 (0.01-0.08) K/mm3 Manual Slide Review Abnormal smear PT 11.7 (9.7-12.0) SECONDS INR 1.10 APTT 29.1 (21.7-31.4) SECONDS Sodium 142 (136-145) mEq/L Potassium 4.7 (3.5-5.1) mEq/L Chloride 109 H (98-107) mEq/L Carbon Dioxide 26 (21-32) mEq/L Anion Gap 11.7 (5-15) BUN 23 H (7-18) mg/dL Creatinine 2.2 H (0.7-1.3) mg/dL Est Cr Clr Drug Dosing 25.35 mL/min Estimated GFR (MDRD) 29 (>60) mL/min BUN/Creatinine Ratio 10.5 L (14-18) Glucose 209 H (70-99) mg/dL Calcium 7.7 L (8.5-10.1) mg/dL Magnesium 1.8 (1.8-2.4) mg/dL Total Bilirubin 1.0 (0.2-1.0) mg/dL AST 24 (15-37) U/L ALT 19 (16-63) U/L Alkaline Phosphatase 128 H (46-116) U/L Troponin I 0.118 H* (0.00-0.056) ng/mL NT-Pro-B Natriuret Pep (0-450) pg/mL Total Protein 6.2 L (6.4-8.2) g/dl Albumin 2.5 L (3.4-5.0) g/dl Globulin 3.7 gm/dL Albumin/Globulin Ratio 0.7 L (1-2) 06/05/21 06/05/21 Range/Units 09:16 11:15 WBC (4.23-9.07) K/mm3 RBC (4.63-6.08) M/mm3 Hgb (13.7-17.5) gm/dl Hct (40.1-51.0) % MCV (79.0-92.2) fl MCH (25.7-32.2) pg MCHC (32.2-35.5) g/dl RDW Std Deviation (35.1-43.9) fL Plt Count (163-337) K/mm3 MPV (9.4-12.3) fl Neut % (Auto) (34.0-67.9) % Lymph % (Auto) (21.8-53.1) % Vernon % (Auto) (5.3-12.2) % Eos % (Auto) (0.8-7.0) Baso % (Auto) (0.1-1.2) % Neut # (Auto) (1.78-5.38) K/mm3 Lymph # (Auto) (1.32-3.57) K/mm3 Vernon # (Auto) (0.30-0.82) K/mm3 Eos # (Auto) (0.04-0.54) K/mm3 Baso # (Auto) (0.01-0.08) K/mm3 Manual Slide Review PT (9.7-12.0) SECONDS INR APTT (21.7-31.4) SECONDS Sodium (136-145) mEq/L Potassium (3.5-5.1) mEq/L Chloride (98-107) mEq/L Carbon Dioxide (21-32) mEq/L Anion Gap (5-15) BUN (7-18) mg/dL Creatinine (0.7-1.3) mg/dL Est Cr Clr Drug Dosing mL/min Estimated GFR (MDRD) (>60) mL/min BUN/Creatinine Ratio (14-18) Glucose (70-99) mg/dL Calcium (8.5-10.1) mg/dL Magnesium (1.8-2.4) mg/dL Total Bilirubin (0.2-1.0) mg/dL AST (15-37) U/L ALT (16-63) U/L Alkaline Phosphatase (46-116) U/L Troponin I 0.120 H* (0.00-0.056) ng/mL NT-Pro-B Natriuret Pep 82175 H (0-450) pg/mL Total Protein (6.4-8.2) g/dl Albumin (3.4-5.0) g/dl Globulin gm/dL Albumin/Globulin Ratio (1-2) - Re-Assessments/Exams Free Text/Narrative Re-Assessment/Exam: 06/05/21 10:57 This x-ray shows a large right-sided pleural effusion questionable infiltrate versus mass he is not running a fever and agree with checking a CT or chest x- ray might be reasonable after this effusion is drained. His troponin came back at 0.118 it has been slightly higher than this in the past thought to be due to his congestive heart failure his proBNP is 17,718 this is a little higher than normal he usually runs just below 15,000. Working to trend out his troponin and check it again in another 15 minutes. The patient did have a bladder scan done upon admission which showed no significant accumulation of urine. 06/05/21 11:37 Discussed x-ray findings and the possible recommendation for CT of the consolidations seen on the chest x-ray patient would like to wait till after anticipated thoracentesis and see what repeat chest x-ray looks like. I did discuss the situation with Dr. Dyson who will see the patient in the office on and schedule thoracentesis and repeat chest x-ray 06/05/21 13:10 Still awaiting urinalysis second troponin was in the same range Case was discussed with Dr. Cat. Her recommendations is to follow-up with Dr. Nagy and probably needs to be seen by nephrology he was scheduled to do this in September. He should follow-up with Dr. Nagy within a week. Case was discussed with Dr. Barriga, the patient's regular physician here in [facility] who is aware of the plan. 06/05/21 14:44 Urinalysis is okay we will discharge Departure - Departure Time of Disposition: 14:44 Disposition: Home, Self-Care 01 Clinical Impression: Large pleural effusion, Heart failure, Renal failure - Discharge Information Referrals: Akua Barriga MD [Primary Care Provider] - Kiel Dyson MD [Physician] - Forms: ED Department Discharge Additional Instructions: Return to the emergency room with any questions problems or worsening symptoms. Later today at first thing tomorrow morning call Dr. Dyson's office to schedule an appointment this coming he is the physician that will help drain the fluid out your chest. You must follow-up with Dr. Nagy, your systems analyst developer no later than early next week. Call him first thing tomorrow morning. You also need to follow-up with your kidney doctor in the near future. See Dr. Barriga here in [place] early next week for recheck. Sepsis Event Note (ED) - Evaluation Sepsis Screening Result: No Definite Risk - Focused Exam Vital Signs: Vital Signs Temp Pulse Resp BP Pulse Ox 06/05/21 08:34 36.4 C 80 18 181/80 H 99 - My Orders Last 24 Hours: My Active Orders 06/05/21 09:04 EKG Documentation Completion [RC] STAT 06/05/21 12:48 UA RFX OCTAVIO AND CULT IF INDIC [URIN] Stat - Assessment/Plan Last 24 Hours: My Active Orders 06/05/21 09:04 EKG Documentation Completion [RC] STAT 06/05/21 12:48 UA RFX OCTAVIO AND CULT IF INDIC [URIN] Stat
--- NOTE | 2021-06-05 09:34 | CR ---
Chest: Frontal view of the chest was obtained. Comparison: Prior chest x-rays of 11/24/20 and 10/28/[address] study of 12/25/20. Findings: Heart is enlarged. Moderately large right-sided pleural effusion is seen. Focal parenchymal density superimposed over the pleural effusion is seen which is possibly due to an area of pneumonia as well as possible mass measuring approximately 5.9 cm. Focal density is seen within the left lung base possibly due to additional small mass measuring 2.8 cm. No acute osseous finding is seen. Impression: 1. Moderately large right-sided pleural effusion. 2. Parenchymal density is either due to areas of pneumonia or parenchymal masses within both lung bases. CT would be needed to differentiate if clinically indicated. 3. Cardiomegaly. Diagnostic code #9
== END 2021-06-05 14:54 | disposition home or self-care (01) ==
LOC: JD.ED 08:14
DX: J90 Pleural effusion, not elsewhere classified (principal); I11.0 Hypertensive heart disease with heart failure; I50.9 Heart failure, unspecified; N19 Unspecified kidney failure; E78.00 Pure hypercholesterolemia, unspecified; E11.9 Type 2 diabetes mellitus without complications; E03.9 Hypothyroidism, unspecified; I44.0 Atrioventricular block, first degree; Z79.4 Long term (current) use of insulin; Z79.82 Long term (current) use of aspirin; Z79.899 Other long term (current) drug therapy
CPT/HCPCS: 36415; 71045; 71045-26; 80053; 81001; 83735; 83880; 84484; 85025; 85610; 85730; 93005; 93010; 99283; 99285-25

== ENCOUNTER 2023-06-06 08:32 | Emergency (ER) | payer MEDICARE, BC ==
[2023-06-06] MEDS ORDERED: Bumetanide 1 MG/4 ML MDV IVPUSH ONE (09:09)
[2023-06-06 09:27] LABS: BASOPHILS ABSOLUTE AUTO 0.02 K/mm3 (0.01-0.08); BASOPHILS PERCENT AUTO 0.3 % (0.1-1.2); EOSINOPHILS ABSOLUTE AUTO 0.08 K/mm3 (0.04-0.54); EOSINOPHILS PERCENT AUTO 1.3 (0.8-7.0); HEMOGLOBIN 12.4 gm/dl (13.7-17.5); IMMATURE GRAN ABSOLUTE AUTO 0.01 K/mm3 (0.00-0.10); IMMATURE GRAN PERCENT AUTO 0.2 % (<=1.0); LYMPHOCYTES ABSOLUTE AUTO 0.44 K/mm3 (1.32-3.57); LYMPHOCYTES PERCENT AUTO 7.2 % (21.8-53.1); MEAN CORPUSCULAR HEMOGLOBIN 29.9 pg (25.7-32.2); MEAN CORPUSCULAR HGB CONC 31.8 g/dl (32.2-35.5); MEAN PLATELET VOLUME 10.8 fl (9.4-12.3); MONOCYTES ABSOLUTE AUTO 0.58 K/mm3 (0.30-0.82); MONOCYTES PERCENT AUTO 9.4 % (5.3-12.2); NEUTROPHILS ABSOLUTE AUTO 5.01 K/mm3 (1.78-5.38); NEUTROPHILS PERCENT AUTO 81.6 % (34.0-67.9); PLATELET COUNT,PLT 204 K/mm3 (163-337); RED BLOOD CELL COUNT 4.15 M/mm3 (4.63-6.08); WHITE BLOOD CELL COUNT,WBC 6.14 K/mm3 (4.23-9.07)
[2023-06-06 09:40] LABS: ALBUMIN 2.5 g/dl (3.4-5.0); ANION GAP 9.1 (5-15); BUN/CREATININE RATIO 16.5 (14-18); CALCIUM 7.9 mg/dL (8.5-10.1); CREATININE 2.3 mg/dL (0.7-1.3); EST CRCL DRUG DOSING (CG) 23.36 mL/min; POTASSIUM,K 4.1 mEq/L (3.5-5.1); PROTEIN TOTAL,TP 5.9 g/dl (6.4-8.2)
[2023-06-06 09:41] LABS: A/G RATIO 0.7 (1-2)
[2023-06-06 12:48] VITALS: BP 118/80; PULSE 71
== END 2023-06-06 12:35 | disposition home or self-care (01) ==
LOC: JD.ED 08:32
DX: J90 Pleural effusion, not elsewhere classified (principal); R60.0 Localized edema; I11.0 Hypertensive heart disease with heart failure; I50.9 Heart failure, unspecified; E78.00 Pure hypercholesterolemia, unspecified; M19.90 Unspecified osteoarthritis, unspecified site; E11.9 Type 2 diabetes mellitus without complications; E03.9 Hypothyroidism, unspecified; Z86.16 Personal history of COVID-19; Z79.4 Long term (current) use of insulin; Z79.82 Long term (current) use of aspirin; Z79.899 Other long term (current) drug therapy
CPT/HCPCS: 36415; 71045; 80053; 83880; 84484; 85025; 93005; 96374; 99285; J3490; 93010; 99284

== ENCOUNTER 2023-06-22 12:19 | Emergency (ER) | payer BC, MEDICARE ==
[2023-06-22] MEDS ORDERED: Dextrose 10% in Water 500 ML IV SCH (12:45)
[2023-06-22] MEDS ORDERED: Dextrose 10% in Water 1,000 ML IV SCH (13:00)
[2023-06-22 14:13] LABS: BASOPHILS ABSOLUTE AUTO 0.02 K/mm3 (0.01-0.08); BASOPHILS PERCENT AUTO 0.3 % (0.1-1.2); EOSINOPHILS ABSOLUTE AUTO 0.03 K/mm3 (0.04-0.54); EOSINOPHILS PERCENT AUTO 0.4 (0.8-7.0); HEMATOCRIT 44.7 % (40.1-51.0); IMMATURE GRAN ABSOLUTE AUTO 0.02 K/mm3 (0.00-0.10); IMMATURE GRAN PERCENT AUTO 0.3 % (<=1.0); LYMPHOCYTES ABSOLUTE AUTO 0.23 K/mm3 (1.32-3.57); LYMPHOCYTES PERCENT AUTO 3.4 % (21.8-53.1); MEAN CORPUSCULAR HEMOGLOBIN 29.7 pg (25.7-32.2); MEAN CORPUSCULAR VOLUME 92.7 fl (79.0-92.2); MEAN PLATELET VOLUME 11.8 fl (9.4-12.3); MONOCYTES ABSOLUTE AUTO 0.57 K/mm3 (0.30-0.82); MONOCYTES PERCENT AUTO 8.4 % (5.3-12.2); NEUTROPHILS ABSOLUTE AUTO 5.89 K/mm3 (1.78-5.38); NEUTROPHILS PERCENT AUTO 87.2 % (34.0-67.9); PLATELET COUNT,PLT 133 K/mm3 (163-337); RED BLOOD CELL COUNT 4.82 M/mm3 (4.63-6.08); WHITE BLOOD CELL COUNT,WBC 6.76 K/mm3 (4.23-9.07)
[2023-06-22 14:17] LABS: A/G RATIO 0.7 (1-2); ALBUMIN 2.9 g/dl (3.4-5.0); ANION GAP 12.9 (5-15); BUN/CREATININE RATIO 16.3 (14-18); CALCIUM 8.6 mg/dL (8.5-10.1); CREATININE 2.4 mg/dL (0.7-1.3); EST CRCL DRUG DOSING (CG) 21.68 mL/min; PROTEIN TOTAL,TP 6.8 g/dl (6.4-8.2)
[2023-06-22 14:25] LABS: HEMOGLOBIN 14.3 gm/dl (13.7-17.5)
[2023-06-22 14:27] LABS: POTASSIUM,K 3.9 mEq/L (3.5-5.1)
[2023-06-22 15:01] LABS: APPEARANCE,URINE CLEAR (Clear); BILIRUBIN,URINE NEGATIVE (Negative); COLOR,URINE YELLOW (Yellow); GLUCOSE,URINE NEGATIVE (Negative); KETONES,URINE NEGATIVE (Negative); LEUKOCYTE ESTERASE,URINE 1+ (Negative); NITRITE,URINE NEGATIVE (Negative); OCCULT BLOOD,URINE TRACE-INTACT (Negative); PROTEIN,URINE 1+ (Negative); UROBILINOGEN,URINE 0.2 (0.2-1.0)
[2023-06-22 15:17] LABS: BACTERIA,URINE MODERATE /hpf (FEW); MUCUS,URINE FEW /hpf (FEW)
[2023-06-22 19:54] VITALS: BP 167/88; PULSE 80
== END 2023-06-22 17:34 | disposition home or self-care (01) ==
LOC: JD.ED 12:19
DX: E11.649 Type 2 diabetes mellitus with hypoglycemia without coma (principal); I50.9 Heart failure, unspecified; I11.0 Hypertensive heart disease with heart failure; E78.00 Pure hypercholesterolemia, unspecified; M19.90 Unspecified osteoarthritis, unspecified site; E03.9 Hypothyroidism, unspecified; Z86.16 Personal history of COVID-19; Z79.4 Long term (current) use of insulin; Z79.82 Long term (current) use of aspirin; Z79.899 Other long term (current) drug therapy
CPT/HCPCS: 36415; 70450; 70450-26; 80053; 81001; 82947; 85025; 87086; 96360; 96361; 99284; 99285-25; J3490

== ENCOUNTER 2023-06-24 06:54 | Emergency (ER) | payer MEDICARE, OTHER ==
[2023-06-24 08:01] LABS: APPEARANCE,URINE CLEAR (Clear); BILIRUBIN,URINE NEGATIVE (Negative); COLOR,URINE YELLOW (Yellow); GLUCOSE,URINE NEGATIVE (Negative); KETONES,URINE NEGATIVE (Negative); LEUKOCYTE ESTERASE,URINE NEGATIVE (Negative); NITRITE,URINE NEGATIVE (Negative); OCCULT BLOOD,URINE NEGATIVE (Negative); PROTEIN,URINE NEGATIVE (Negative); UROBILINOGEN,URINE 0.2 (0.2-1.0)
[2023-06-24 08:05] LABS: BASOPHILS ABSOLUTE AUTO 0.02 K/mm3 (0.01-0.08); BASOPHILS PERCENT AUTO 0.3 % (0.1-1.2); EOSINOPHILS ABSOLUTE AUTO 0.06 K/mm3 (0.04-0.54); HEMATOCRIT 41.8 % (40.1-51.0); HEMOGLOBIN 13.4 gm/dl (13.7-17.5); IMMATURE GRAN ABSOLUTE AUTO 0.01 K/mm3 (0.00-0.10); IMMATURE GRAN PERCENT AUTO 0.2 % (<=1.0); LYMPHOCYTES ABSOLUTE AUTO 0.38 K/mm3 (1.32-3.57); LYMPHOCYTES PERCENT AUTO 6.5 % (21.8-53.1); MEAN CORPUSCULAR HEMOGLOBIN 29.9 pg (25.7-32.2); MEAN CORPUSCULAR HGB CONC 32.1 g/dl (32.2-35.5); MEAN CORPUSCULAR VOLUME 93.3 fl (79.0-92.2); MEAN PLATELET VOLUME 10.6 fl (9.4-12.3); MONOCYTES ABSOLUTE AUTO 0.73 K/mm3 (0.30-0.82); MONOCYTES PERCENT AUTO 12.5 % (5.3-12.2); NEUTROPHILS ABSOLUTE AUTO 4.65 K/mm3 (1.78-5.38); NEUTROPHILS PERCENT AUTO 79.5 % (34.0-67.9); PLATELET COUNT,PLT 154 K/mm3 (163-337); RED BLOOD CELL COUNT 4.48 M/mm3 (4.63-6.08); WHITE BLOOD CELL COUNT,WBC 5.85 K/mm3 (4.23-9.07)
[2023-06-24 08:11] LABS: BACTERIA,URINE RARE /hpf (FEW); RBC,URINE 0-5 /hpf (0-5); SQUAMOUS EPITHELIAL CELLS,UR 0-5 /hpf (0-5); WBC,URINE 0-5 /hpf (0-5)
[2023-06-24 08:12] LABS: MUCUS,URINE NOT SEEN /hpf (FEW)
[2023-06-24 08:26] LABS: A/G RATIO 0.8 (1-2); ALBUMIN 2.7 g/dl (3.4-5.0); ANION GAP 13.7 (5-15); BILIRUBIN TOTAL 1.7 mg/dL (0.2-1.0); BUN/CREATININE RATIO 14.3 (14-18); CALCIUM 8.2 mg/dL (8.5-10.1); CREATININE 2.3 mg/dL (0.7-1.3); EST CRCL DRUG DOSING (CG) 22.63 mL/min; POTASSIUM,K 3.7 mEq/L (3.5-5.1); PROTEIN TOTAL,TP 6.3 g/dl (6.4-8.2)
[2023-06-24 14:39] VITALS: BP 147/87; PULSE 73
== END 2023-06-24 13:13 | disposition home or self-care (01) ==
LOC: JD.ED 06:54
DX: T42.4X1A Poisoning by benzodiazepines, accidental (unintentional), initial encounter (principal); E11.9 Type 2 diabetes mellitus without complications; E03.9 Hypothyroidism, unspecified; I11.0 Hypertensive heart disease with heart failure; I50.9 Heart failure, unspecified; E78.00 Pure hypercholesterolemia, unspecified; M19.90 Unspecified osteoarthritis, unspecified site; Z86.73 Personal history of transient ischemic attack (TIA), and cerebral infarction without residual deficits; Z86.16 Personal history of COVID-19; Z79.4 Long term (current) use of insulin; Z79.82 Long term (current) use of aspirin; Z79.899 Other long term (current) drug therapy
CPT/HCPCS: 36415; 71045; 71045-26; 73502-26-LT; 73502-LT; 73700-26-LT; 73700-LT; 80053; 81001; 82947; 85025; 99284

== ENCOUNTER 2023-10-21 14:59 | Emergency (ER) | payer MEDICARE, BC ==
[2023-10-21 16:23] LABS: INFLUENZA A NAA NEGATIVE (NEGATIVE); RESPIRATORY SYNCYTIAL VIR NAA NEGATIVE (NEGATIVE)
[2023-10-21 17:10] LABS: CORONAVIRUS COVID-19 NAA POSITIVE (NEGATIVE)
[2023-10-21 19:35] VITALS: BP 133/79; PULSE 77
== END 2023-10-21 19:00 | disposition home or self-care (01) ==
LOC: JD.ED 14:59
DX: U07.1 COVID-19 (principal); J90 Pleural effusion, not elsewhere classified; S20.222A Contusion of left back wall of thorax, initial encounter; I11.0 Hypertensive heart disease with heart failure; I50.9 Heart failure, unspecified; E11.9 Type 2 diabetes mellitus without complications; I48.91 Unspecified atrial fibrillation; E78.00 Pure hypercholesterolemia, unspecified; E03.9 Hypothyroidism, unspecified; Z79.01 Long term (current) use of anticoagulants; Z79.899 Other long term (current) drug therapy; Z90.49 Acquired absence of other specified parts of digestive tract; W01.0XXA Fall on same level from slipping, tripping and stumbling without subsequent striking against object, initial encounter
CPT/HCPCS: 0241U; 71045; 72100; 72170; 82947; 99284

== ENCOUNTER 2023-10-31 11:14 | Emergency (ER) | payer MEDICARE, BC ==
[2023-10-31 11:38] LABS: BASOPHILS PERCENT AUTO 0.5 % (0.0-1.0); EOSINOPHILS ABSOLUTE AUTO 0.1 K/mm3 (0.0-0.4); HEMATOCRIT 42.4 % (42.0-52.0); HEMOGLOBIN 13.6 gm/dl (14.0-18.0); IMMATURE GRAN ABSOLUTE AUTO 0.02 K/mm3 (0.00-0.05); IMMATURE GRAN PERCENT AUTO 0.3 % (0.0-0.4); LYMPHOCYTES ABSOLUTE AUTO 0.5 K/mm3 (1.0-4.8); LYMPHOCYTES PERCENT AUTO 8.2 % (24.0-44.0); MEAN CORPUSCULAR HEMOGLOBIN 31.4 pg (28.0-32.0); MEAN CORPUSCULAR HGB CONC 32.1 g/dl (32.0-36.0); MEAN CORPUSCULAR VOLUME 97.9 fl (83.0-99.0); MEAN PLATELET VOLUME 10.9 fl (9.4-12.4); MONOCYTES ABSOLUTE AUTO 0.5 K/mm3 (0.0-0.8); MONOCYTES PERCENT AUTO 8.8 % (0.0-8.0); NEUTROPHILS ABSOLUTE AUTO 4.9 K/mm3 (1.8-7.7); NEUTROPHILS PERCENT AUTO 81.2 % (41.0-71.0); PLATELET COUNT,PLT 122 K/mm3 (150-400); RED BLOOD CELL COUNT 4.33 M/mm3 (4.52-5.90)
[2023-10-31 11:56] LABS: A/G RATIO 0.6 (1-2); ALBUMIN 2.7 g/dl (3.4-5.0); ANION GAP 12.7 (5-15); BILIRUBIN TOTAL 1.5 mg/dL (0.2-1.0); BUN/CREATININE RATIO 16.1 (14-18); CALCIUM 8.4 mg/dL (8.5-10.1); CREATININE 2.8 mg/dL (0.7-1.3); EST CRCL DRUG DOSING (CG) 16.77 mL/min; MAGNESIUM 1.9 mg/dL (1.8-2.4); POTASSIUM,K 3.7 mEq/L (3.5-5.1); PROTEIN TOTAL,TP 6.9 g/dl (6.4-8.2)
[2023-10-31 12:57] LABS: APPEARANCE,URINE CLEAR (Clear); BILIRUBIN,URINE NEGATIVE (Negative); COLOR,URINE LIGHT YELLOW (Yellow); GLUCOSE,URINE TRACE (Negative); KETONES,URINE NEGATIVE (Negative); LEUKOCYTE ESTERASE,URINE NEGATIVE (Negative); NITRITE,URINE NEGATIVE (Negative); OCCULT BLOOD,URINE NEGATIVE (Negative); PROTEIN,URINE NEGATIVE (Negative); UROBILINOGEN,URINE 0.2 (0.2-1.0)
[2023-10-31 13:31] LABS: BACTERIA,URINE RARE /hpf (FEW); MUCUS,URINE NOT SEEN /hpf (FEW); RBC,URINE NOT SEEN /hpf (0-5); SQUAMOUS EPITHELIAL CELLS,UR NOT SEEN /hpf (0-5); WBC,URINE 0-5 /hpf (0-5)
[2023-10-31 16:20] VITALS: BP 135/74; PULSE 88
== END 2023-10-31 14:10 | disposition home or self-care (01) ==
LOC: JD.ED 11:14
DX: S01.01XA Laceration without foreign body of scalp, initial encounter (principal); I10 Essential (primary) hypertension; I48.91 Unspecified atrial fibrillation; E78.00 Pure hypercholesterolemia, unspecified; E11.9 Type 2 diabetes mellitus without complications; E03.9 Hypothyroidism, unspecified; Z86.16 Personal history of COVID-19; Z90.49 Acquired absence of other specified parts of digestive tract; Z79.01 Long term (current) use of anticoagulants; Z79.899 Other long term (current) drug therapy; W18.30XA Fall on same level, unspecified, initial encounter; W22.8XXA Striking against or struck by other objects, initial encounter
CPT/HCPCS: 12001; 36415; 70450; 70450-26; 72125; 72125-26; 80053; 81001; 83735; 85025; 99283; 99284

== ENCOUNTER 2023-11-18 20:46 | Emergency (ER) | payer MEDICARE, BC ==
[2023-11-18 21:41] LABS: A/G RATIO 0.6 (1-2); ALBUMIN 2.4 g/dl (3.4-5.0); ANION GAP 12.8 (5-15); BILIRUBIN TOTAL 1.1 mg/dL (0.2-1.0); BUN/CREATININE RATIO 18.6 (14-18); CALCIUM 8.6 mg/dL (8.5-10.1); CREATININE 2.9 mg/dL (0.7-1.3); EST CRCL DRUG DOSING (CG) 18.53 mL/min; POTASSIUM,K 4.8 mEq/L (3.5-5.1); PROTEIN TOTAL,TP 6.3 g/dl (6.4-8.2)
[2023-11-18 21:43] LABS: APPEARANCE,URINE CLEAR (Clear); BILIRUBIN,URINE NEGATIVE (Negative); COLOR,URINE YELLOW (Yellow); GLUCOSE,URINE TRACE (Negative); KETONES,URINE NEGATIVE (Negative); LEUKOCYTE ESTERASE,URINE NEGATIVE (Negative); NITRITE,URINE NEGATIVE (Negative); OCCULT BLOOD,URINE 2+ (Negative); PH,URINE 5.5 (5.0-8.0); PROTEIN,URINE NEGATIVE (Negative); UROBILINOGEN,URINE 0.2 (0.2-1.0)
[2023-11-18 22:03] LABS: BACTERIA,URINE FEW /hpf (FEW); MUCUS,URINE FEW /hpf (FEW); RBC,URINE >100 /hpf (0-5); SQUAMOUS EPITHELIAL CELLS,UR 0-5 /hpf (0-5); WBC,URINE 0-5 /hpf (0-5)
[2023-11-18 22:07] LABS: BASOPHILS PERCENT AUTO 0.7 % (0.0-1.0); EOSINOPHILS PERCENT AUTO 0.7 % (0.0-6.0); HEMATOCRIT 36.6 % (42.0-52.0); IMMATURE GRAN ABSOLUTE AUTO 0.01 K/mm3 (0.00-0.05); IMMATURE GRAN PERCENT AUTO 0.2 % (0.0-0.4); LYMPHOCYTES ABSOLUTE AUTO 0.4 K/mm3 (1.0-4.8); LYMPHOCYTES PERCENT AUTO 7.5 % (24.0-44.0); MEAN CORPUSCULAR HEMOGLOBIN 32.2 pg (28.0-32.0); MEAN CORPUSCULAR HGB CONC 32.8 g/dl (32.0-36.0); MEAN CORPUSCULAR VOLUME 98.1 fl (83.0-99.0); MONOCYTES ABSOLUTE AUTO 0.6 K/mm3 (0.0-0.8); MONOCYTES PERCENT AUTO 11.2 % (0.0-8.0); NEUTROPHILS ABSOLUTE AUTO 4.4 K/mm3 (1.8-7.7); NEUTROPHILS PERCENT AUTO 79.7 % (41.0-71.0); PLATELET COUNT,PLT 107 K/mm3 (150-400); RED BLOOD CELL COUNT 3.73 M/mm3 (4.52-5.90); WHITE BLOOD CELL COUNT,WBC 5.46 K/mm3 (3.9-11.3)
[2023-11-18] MEDS ORDERED: Sodium Chloride 0.9% 500 ML IV ONE (22:33)
[2023-11-19 01:53] VITALS: BP 146/97; PULSE 85
== END 2023-11-19 00:30 | disposition home or self-care (01) ==
LOC: JD.ED 20:46
DX: S20.211A Contusion of right front wall of thorax, initial encounter (principal); S00.212A Abrasion of left eyelid and periocular area, initial encounter; S00.81XA Abrasion of other part of head, initial encounter; I11.0 Hypertensive heart disease with heart failure; I50.9 Heart failure, unspecified; E11.9 Type 2 diabetes mellitus without complications; E03.9 Hypothyroidism, unspecified; Z86.73 Personal history of transient ischemic attack (TIA), and cerebral infarction without residual deficits; Z86.16 Personal history of COVID-19; Z90.49 Acquired absence of other specified parts of digestive tract; Z79.01 Long term (current) use of anticoagulants; Z79.899 Other long term (current) drug therapy; W18.2XXA Fall in (into) shower or empty bathtub, initial encounter; Y92.002 Bathroom of unspecified non-institutional (private) residence as the place of occurrence of the external cause
CPT/HCPCS: 36415; 70450; 72125; 80053; 81001; 85025; 99284; C1758; J7030

== ENCOUNTER 2023-11-19 04:53 | Inpatient (IN) | payer MEDICARE, BC ==
[2023-11-19 06:30] LABS: BUN/CREATININE RATIO 18.6 (14-18); CALCIUM 8.5 mg/dL (8.5-10.1); CREATININE 2.8 mg/dL (0.7-1.3); EST CRCL DRUG DOSING (CG) 19.19 mL/min
[2023-11-19] MEDS ORDERED: Sodium Chloride 0.9% 500 ML IV ONE (06:50)
[2023-11-19 09:35] LABS: CORONAVIRUS COVID-19 NAA POSITIVE (NEGATIVE); INFLUENZA A NAA NEGATIVE (NEGATIVE); RESPIRATORY SYNCYTIAL VIR NAA NEGATIVE (NEGATIVE)
[2023-11-19] MEDS ORDERED: Piperacillin/Tazobactam 4.5 GM in Sodium Chloride 0.9% 100 ML IV ONE (10:32)
[2023-11-19 11:40] LABS: BASOPHILS PERCENT AUTO 0.5 % (0.0-1.0); EOSINOPHILS PERCENT AUTO 0.5 % (0.0-6.0); HEMATOCRIT 39.8 % (42.0-52.0); HEMOGLOBIN 12.4 gm/dl (14.0-18.0); IMMATURE GRAN ABSOLUTE AUTO 0.01 K/mm3 (0.00-0.05); IMMATURE GRAN PERCENT AUTO 0.2 % (0.0-0.4); LYMPHOCYTES ABSOLUTE AUTO 0.4 K/mm3 (1.0-4.8); LYMPHOCYTES PERCENT AUTO 8.1 % (24.0-44.0); MEAN CORPUSCULAR HEMOGLOBIN 30.5 pg (28.0-32.0); MEAN CORPUSCULAR HGB CONC 31.2 g/dl (32.0-36.0); MEAN PLATELET VOLUME 12.9 fl (9.4-12.4); MONOCYTES ABSOLUTE AUTO 0.5 K/mm3 (0.0-0.8); MONOCYTES PERCENT AUTO 8.6 % (0.0-8.0); NEUTROPHILS ABSOLUTE AUTO 4.5 K/mm3 (1.8-7.7); NEUTROPHILS PERCENT AUTO 82.1 % (41.0-71.0); PLATELET COUNT,PLT 86 K/mm3 (150-400); RED BLOOD CELL COUNT 4.06 M/mm3 (4.52-5.90); WHITE BLOOD CELL COUNT,WBC 5.46 K/mm3 (3.9-11.3)
[2023-11-19 12:40] LABS: SLIDE REVIEW ABNORMAL SMEAR
[2023-11-19] MEDS ORDERED: Piperacillin/Tazobactam 4.5 GM in Sodium Chloride 0.9% 100 ML IV SCH ×2 (12:45→13:00)
[2023-11-19] MEDS: Tamsulosin 0.4 MG Cap.ER PO SCH (18:03)
[2023-11-19] MEDS: Insulin Regular, Human 100 Units/ML 3 ML Vial SUBCUT SCH (18:03)
[2023-11-19] MEDS: Sodium Bicarbonate 650 MG Tab PO SCH (20:04)
[2023-11-19] MEDS: Apixaban 2.5 MG Tab PO SCH (20:05)
[2023-11-19] MEDS: Piperacillin/Tazobactam 4.5 GM in Sodium Chloride 0.9% 100 ML IV SCH (22:40)
[2023-11-20 06:21] LABS: BASOPHILS PERCENT AUTO 0.4 % (0.0-1.0); EOSINOPHILS PERCENT AUTO 0.5 % (0.0-6.0); HEMATOCRIT 40.4 % (42.0-52.0); HEMOGLOBIN 12.7 gm/dl (14.0-18.0); IMMATURE GRAN ABSOLUTE AUTO 0.02 K/mm3 (0.00-0.05); IMMATURE GRAN PERCENT AUTO 0.4 % (0.0-0.4); LYMPHOCYTES ABSOLUTE AUTO 0.3 K/mm3 (1.0-4.8); LYMPHOCYTES PERCENT AUTO 5.8 % (24.0-44.0); MEAN CORPUSCULAR HEMOGLOBIN 31.2 pg (28.0-32.0); MEAN CORPUSCULAR HGB CONC 31.4 g/dl (32.0-36.0); MEAN CORPUSCULAR VOLUME 99.3 fl (83.0-99.0); MEAN PLATELET VOLUME 11.8 fl (9.4-12.4); MONOCYTES ABSOLUTE AUTO 0.5 K/mm3 (0.0-0.8); MONOCYTES PERCENT AUTO 9.1 % (0.0-8.0); NEUTROPHILS ABSOLUTE AUTO 4.6 K/mm3 (1.8-7.7); NEUTROPHILS PERCENT AUTO 83.8 % (41.0-71.0); PLATELET COUNT,PLT 98 K/mm3 (150-400); RED BLOOD CELL COUNT 4.07 M/mm3 (4.52-5.90); WHITE BLOOD CELL COUNT,WBC 5.49 K/mm3 (3.9-11.3)
[2023-11-20 06:41] LABS: A/G RATIO 0.6 (1-2); ALBUMIN 2.4 g/dl (3.4-5.0); ANION GAP 11.1 (5-15); BILIRUBIN TOTAL 1.6 mg/dL (0.2-1.0); BUN/CREATININE RATIO 21.5 (14-18); CALCIUM 8.5 mg/dL (8.5-10.1); CREATININE 2.7 mg/dL (0.7-1.3); EST CRCL DRUG DOSING (CG) 18.65 mL/min; MAGNESIUM 2.3 mg/dL (1.8-2.4); POTASSIUM,K 5.1 mEq/L (3.5-5.1); PROTEIN TOTAL,TP 6.2 g/dl (6.4-8.2)
[2023-11-20] MEDS: Levothyroxine 112 MCG Tab PO SCH (06:55)
[2023-11-20] MEDS ORDERED: Ondansetron 4 MG/2 ML SDV IV PRN (08:31)
[2023-11-20] MEDS ORDERED: Albuterol/Ipratropium 3.0-0.5 MG/3 ML Neb Soln NEB PRN (08:32)
[2023-11-20] MEDS ORDERED: Bumetanide 1 MG Tab PO SCH (09:00)
[2023-11-20] MEDS: Insulin Glargine,Human Rec. Analog 100 Units/ML 3 ML Pen SUBCUT SCH (09:45)
[2023-11-20] MEDS: Insulin Regular, Human 100 Units/ML 3 ML Vial SUBCUT SCH ×3 (09:46→18:27)
[2023-11-20] MEDS: Cholecalciferol (Vitamin D3) 25 MCG Tab PO SCH (09:47)
[2023-11-20] MEDS: Tamsulosin 0.4 MG Cap.ER PO SCH ×2 (09:47→18:28)
[2023-11-20] MEDS: Apixaban 2.5 MG Tab PO SCH ×2 (09:47→21:50)
[2023-11-20] MEDS: Sodium Bicarbonate 650 MG Tab PO SCH ×2 (09:47→21:50)
[2023-11-20] MEDS: Losartan 25 MG Tab PO SCH (09:48)
[2023-11-20] MEDS: Allopurinol 100 MG Tab PO SCH (09:48)
[2023-11-20] MEDS: Piperacillin/Tazobactam 4.5 GM in Sodium Chloride 0.9% 100 ML IV SCH ×2 (09:51→21:52)
[2023-11-20] MEDS: Metoprolol Succinate 50 MG Tab.ER PO SCH (09:52)
[2023-11-20] MEDS: atorvaSTATin 40 MG Tab PO SCH (09:52)
[2023-11-20] MEDS: Potassium Chloride 10 MEQ Tab.ER PO SCH (09:52)
[2023-11-20] MEDS: Aspirin 81 MG Tab.EC PO SCH (09:52)
[2023-11-20] MEDS: Finasteride 5 MG Tab PO SCH (09:52)
[2023-11-20] MEDS: Calcitriol 0.25 MCG Cap PO SCH (09:52)
[2023-11-20 15:13] LABS: CORONAVIRUS COVID-19 NAA POSITIVE (NEGATIVE); INFLUENZA A NAA NEGATIVE (NEGATIVE); RESPIRATORY SYNCYTIAL VIR NAA NEGATIVE (NEGATIVE)
[2023-11-21] MEDS: Levothyroxine 112 MCG Tab PO SCH (06:08)
[2023-11-21] MEDS: Bumetanide 1 MG Tab PO SCH (07:59)
[2023-11-21] MEDS: Allopurinol 100 MG Tab PO SCH (07:59)
[2023-11-21] MEDS: Sodium Bicarbonate 650 MG Tab PO SCH ×2 (07:59→20:39)
[2023-11-21] MEDS: Finasteride 5 MG Tab PO SCH (07:59)
[2023-11-21] MEDS: Tamsulosin 0.4 MG Cap.ER PO SCH ×2 (07:59→18:11)
[2023-11-21] MEDS: Cholecalciferol (Vitamin D3) 25 MCG Tab PO SCH (08:00)
[2023-11-21] MEDS: Calcitriol 0.25 MCG Cap PO SCH (08:00)
[2023-11-21] MEDS: Metoprolol Succinate 50 MG Tab.ER PO SCH (08:01)
[2023-11-21] MEDS: Apixaban 2.5 MG Tab PO SCH ×2 (08:01→20:40)
[2023-11-21] MEDS: Losartan 25 MG Tab PO SCH (08:01)
[2023-11-21] MEDS: atorvaSTATin 40 MG Tab PO SCH (08:01)
[2023-11-21] MEDS: Potassium Chloride 10 MEQ Tab.ER PO SCH (08:01)
[2023-11-21] MEDS: Aspirin 81 MG Tab.EC PO SCH (08:02)
[2023-11-21] MEDS: Insulin Regular, Human 100 Units/ML 3 ML Vial SUBCUT SCH ×3 (08:13→18:19)
[2023-11-21] MEDS: Insulin Glargine,Human Rec. Analog 100 Units/ML 3 ML Pen SUBCUT SCH (08:13)
[2023-11-21 08:33] LABS: BASOPHILS PERCENT AUTO 0.5 % (0.0-1.0); EOSINOPHILS PERCENT AUTO 0.5 % (0.0-6.0); HEMATOCRIT 39.4 % (42.0-52.0); HEMOGLOBIN 12.6 gm/dl (14.0-18.0); IMMATURE GRAN ABSOLUTE AUTO 0.02 K/mm3 (0.00-0.05); IMMATURE GRAN PERCENT AUTO 0.3 % (0.0-0.4); LYMPHOCYTES ABSOLUTE AUTO 0.4 K/mm3 (1.0-4.8); LYMPHOCYTES PERCENT AUTO 5.5 % (24.0-44.0); MEAN CORPUSCULAR HEMOGLOBIN 31.3 pg (28.0-32.0); MEAN PLATELET VOLUME 10.9 fl (9.4-12.4); MONOCYTES ABSOLUTE AUTO 0.4 K/mm3 (0.0-0.8); MONOCYTES PERCENT AUTO 6.4 % (0.0-8.0); NEUTROPHILS ABSOLUTE AUTO 5.6 K/mm3 (1.8-7.7); NEUTROPHILS PERCENT AUTO 86.8 % (41.0-71.0); PLATELET COUNT,PLT 96 K/mm3 (150-400); RED BLOOD CELL COUNT 4.02 M/mm3 (4.52-5.90)
[2023-11-21 08:45] LABS: ANION GAP 10.9 (5-15); BUN/CREATININE RATIO 24.6 (14-18); C-REACTIVE PROTEIN 4.8 mg/dL (<1.0); CALCIUM 8.9 mg/dL (8.5-10.1); CREATININE 2.6 mg/dL (0.7-1.3); EST CRCL DRUG DOSING (CG) 19.37 mL/min; MAGNESIUM 2.2 mg/dL (1.8-2.4)
[2023-11-21 08:52] LABS: POTASSIUM,K 4.9 mEq/L (3.5-5.1)
[2023-11-21 09:30] LABS: SLIDE REVIEW ABNORMAL SMEAR
[2023-11-21] MEDS: Piperacillin/Tazobactam 4.5 GM in Sodium Chloride 0.9% 100 ML IV SCH ×2 (09:49→23:29)
[2023-11-21] MEDS: Acetaminophen 325 MG Tab PO PRN (20:39)
[2023-11-22 05:29] LABS: BASOPHILS PERCENT AUTO 0.6 % (0.0-1.0); EOSINOPHILS ABSOLUTE AUTO 0.1 K/mm3 (0.0-0.4); EOSINOPHILS PERCENT AUTO 1.4 % (0.0-6.0); HEMATOCRIT 39.6 % (42.0-52.0); HEMOGLOBIN 12.6 gm/dl (14.0-18.0); IMMATURE GRAN ABSOLUTE AUTO 0.02 K/mm3 (0.00-0.05); IMMATURE GRAN PERCENT AUTO 0.4 % (0.0-0.4); LYMPHOCYTES ABSOLUTE AUTO 0.4 K/mm3 (1.0-4.8); LYMPHOCYTES PERCENT AUTO 7.9 % (24.0-44.0); MEAN CORPUSCULAR HEMOGLOBIN 30.8 pg (28.0-32.0); MEAN CORPUSCULAR HGB CONC 31.8 g/dl (32.0-36.0); MEAN CORPUSCULAR VOLUME 96.8 fl (83.0-99.0); MEAN PLATELET VOLUME 10.7 fl (9.4-12.4); MONOCYTES ABSOLUTE AUTO 0.5 K/mm3 (0.0-0.8); MONOCYTES PERCENT AUTO 9.1 % (0.0-8.0); NEUTROPHILS PERCENT AUTO 80.6 % (41.0-71.0); PLATELET COUNT,PLT 104 K/mm3 (150-400); RED BLOOD CELL COUNT 4.09 M/mm3 (4.52-5.90); WHITE BLOOD CELL COUNT,WBC 4.96 K/mm3 (3.9-11.3)
[2023-11-22] MEDS: Levothyroxine 112 MCG Tab PO SCH (05:57)
[2023-11-22 06:02] LABS: ANION GAP 11.4 (5-15); C-REACTIVE PROTEIN 3.9 mg/dL (<1.0); CALCIUM 8.9 mg/dL (8.5-10.1); CREATININE 2.6 mg/dL (0.7-1.3); EST CRCL DRUG DOSING (CG) 19.37 mL/min; POTASSIUM,K 4.4 mEq/L (3.5-5.1)
[2023-11-22] MEDS: Apixaban 2.5 MG Tab PO SCH ×2 (08:39→22:16)
[2023-11-22] MEDS: Tamsulosin 0.4 MG Cap.ER PO SCH ×2 (08:39→18:09)
[2023-11-22] MEDS: Allopurinol 100 MG Tab PO SCH (08:40)
[2023-11-22] MEDS: Cholecalciferol (Vitamin D3) 25 MCG Tab PO SCH (08:40)
[2023-11-22] MEDS: Bumetanide 1 MG Tab PO SCH (08:40)
[2023-11-22] MEDS: Sodium Bicarbonate 650 MG Tab PO SCH ×2 (08:40→22:17)
[2023-11-22] MEDS: atorvaSTATin 40 MG Tab PO SCH (08:41)
[2023-11-22] MEDS: Metoprolol Succinate 50 MG Tab.ER PO SCH (08:41)
[2023-11-22] MEDS: Finasteride 5 MG Tab PO SCH (08:41)
[2023-11-22] MEDS: Insulin Glargine,Human Rec. Analog 100 Units/ML 3 ML Pen SUBCUT SCH (08:42)
[2023-11-22] MEDS: Potassium Chloride 10 MEQ Tab.ER PO SCH (08:42)
[2023-11-22] MEDS: Losartan 25 MG Tab PO SCH (08:42)
[2023-11-22] MEDS: Calcitriol 0.25 MCG Cap PO SCH (08:42)
[2023-11-22] MEDS: Insulin Regular, Human 100 Units/ML 3 ML Vial SUBCUT SCH ×3 (08:43→18:08)
[2023-11-22] MEDS: Aspirin 81 MG Tab.EC PO SCH (08:43)
[2023-11-22] MEDS: Piperacillin/Tazobactam 4.5 GM in Sodium Chloride 0.9% 100 ML IV SCH ×2 (11:21→22:17)
[2023-11-22] MEDS: Acetaminophen 325 MG Tab PO PRN (22:15)
[2023-11-23 05:40] LABS: BASOPHILS PERCENT AUTO 0.6 % (0.0-1.0); EOSINOPHILS ABSOLUTE AUTO 0.1 K/mm3 (0.0-0.4); EOSINOPHILS PERCENT AUTO 1.2 % (0.0-6.0); HEMATOCRIT 39.1 % (42.0-52.0); HEMOGLOBIN 12.7 gm/dl (14.0-18.0); IMMATURE GRAN ABSOLUTE AUTO 0.01 K/mm3 (0.00-0.05); IMMATURE GRAN PERCENT AUTO 0.2 % (0.0-0.4); LYMPHOCYTES ABSOLUTE AUTO 0.5 K/mm3 (1.0-4.8); LYMPHOCYTES PERCENT AUTO 8.9 % (24.0-44.0); MEAN CORPUSCULAR HEMOGLOBIN 31.5 pg (28.0-32.0); MEAN CORPUSCULAR HGB CONC 32.5 g/dl (32.0-36.0); MEAN PLATELET VOLUME 11.6 fl (9.4-12.4); MONOCYTES ABSOLUTE AUTO 0.5 K/mm3 (0.0-0.8); MONOCYTES PERCENT AUTO 8.9 % (0.0-8.0); NEUTROPHILS ABSOLUTE AUTO 4.2 K/mm3 (1.8-7.7); NEUTROPHILS PERCENT AUTO 80.2 % (41.0-71.0); PLATELET COUNT,PLT 111 K/mm3 (150-400); RED BLOOD CELL COUNT 4.03 M/mm3 (4.52-5.90); WHITE BLOOD CELL COUNT,WBC 5.17 K/mm3 (3.9-11.3)
[2023-11-23 05:55] LABS: ANION GAP 11.2 (5-15); BUN/CREATININE RATIO 25.7 (14-18); C-REACTIVE PROTEIN 3.9 mg/dL (<1.0); CALCIUM 8.5 mg/dL (8.5-10.1); CREATININE 2.8 mg/dL (0.7-1.3); EST CRCL DRUG DOSING (CG) 17.98 mL/min; MAGNESIUM 2.2 mg/dL (1.8-2.4); POTASSIUM,K 4.2 mEq/L (3.5-5.1)
[2023-11-23] MEDS: Levothyroxine 112 MCG Tab PO SCH (05:57)
[2023-11-23] MEDS: Bumetanide 1 MG Tab PO SCH (08:24)
[2023-11-23] MEDS: Allopurinol 100 MG Tab PO SCH (08:24)
[2023-11-23] MEDS: Sodium Bicarbonate 650 MG Tab PO SCH ×2 (08:25→20:21)
[2023-11-23] MEDS: Cholecalciferol (Vitamin D3) 25 MCG Tab PO SCH (08:25)
[2023-11-23] MEDS: Metoprolol Succinate 50 MG Tab.ER PO SCH (08:25)
[2023-11-23] MEDS: Potassium Chloride 10 MEQ Tab.ER PO SCH (08:25)
[2023-11-23] MEDS: Finasteride 5 MG Tab PO SCH (08:26)
[2023-11-23] MEDS: Tamsulosin 0.4 MG Cap.ER PO SCH ×2 (08:26→18:18)
[2023-11-23] MEDS: Calcitriol 0.25 MCG Cap PO SCH (08:26)
[2023-11-23] MEDS: Apixaban 2.5 MG Tab PO SCH ×2 (08:26→20:21)
[2023-11-23] MEDS: Aspirin 81 MG Tab.EC PO SCH (08:26)
[2023-11-23] MEDS: Losartan 25 MG Tab PO SCH (08:26)
[2023-11-23] MEDS: atorvaSTATin 40 MG Tab PO SCH (08:26)
[2023-11-23] MEDS: Insulin Glargine,Human Rec. Analog 100 Units/ML 3 ML Pen SUBCUT SCH (08:27)
[2023-11-23] MEDS: Insulin Regular, Human 100 Units/ML 3 ML Vial SUBCUT SCH ×3 (11:13→19:50)
[2023-11-23] MEDS: Piperacillin/Tazobactam 4.5 GM in Sodium Chloride 0.9% 100 ML IV SCH ×3 (13:14→21:41)
[2023-11-23] MEDS ORDERED: 50% Dextrose in Water 50 ML Syringe IVPUSH PRN (17:06)
[2023-11-23] MEDS ORDERED: 50% Dextrose in Water 50 ML Syringe ONE (17:09)
[2023-11-23] MEDS: Acetaminophen 325 MG Tab PO PRN (20:20)
[2023-11-24 05:47] LABS: BASOPHILS PERCENT AUTO 0.4 % (0.0-1.0); EOSINOPHILS ABSOLUTE AUTO 0.1 K/mm3 (0.0-0.4); EOSINOPHILS PERCENT AUTO 1.7 % (0.0-6.0); HEMATOCRIT 39.3 % (42.0-52.0); HEMOGLOBIN 12.7 gm/dl (14.0-18.0); IMMATURE GRAN ABSOLUTE AUTO 0.01 K/mm3 (0.00-0.05); IMMATURE GRAN PERCENT AUTO 0.2 % (0.0-0.4); LYMPHOCYTES ABSOLUTE AUTO 0.4 K/mm3 (1.0-4.8); LYMPHOCYTES PERCENT AUTO 8.1 % (24.0-44.0); MEAN CORPUSCULAR HEMOGLOBIN 30.8 pg (28.0-32.0); MEAN CORPUSCULAR HGB CONC 32.3 g/dl (32.0-36.0); MEAN CORPUSCULAR VOLUME 95.4 fl (83.0-99.0); MEAN PLATELET VOLUME 11.7 fl (9.4-12.4); MONOCYTES ABSOLUTE AUTO 0.4 K/mm3 (0.0-0.8); MONOCYTES PERCENT AUTO 7.4 % (0.0-8.0); NEUTROPHILS ABSOLUTE AUTO 4.3 K/mm3 (1.8-7.7); NEUTROPHILS PERCENT AUTO 82.2 % (41.0-71.0); PLATELET COUNT,PLT 116 K/mm3 (150-400); RED BLOOD CELL COUNT 4.12 M/mm3 (4.52-5.90); WHITE BLOOD CELL COUNT,WBC 5.17 K/mm3 (3.9-11.3)
[2023-11-24 06:01] LABS: ANION GAP 13.3 (5-15); BUN/CREATININE RATIO 23.6 (14-18); C-REACTIVE PROTEIN 2.8 mg/dL (<1.0); CALCIUM 8.5 mg/dL (8.5-10.1); CREATININE 2.8 mg/dL (0.7-1.3); EST CRCL DRUG DOSING (CG) 17.98 mL/min; MAGNESIUM 2.2 mg/dL (1.8-2.4); POTASSIUM,K 4.3 mEq/L (3.5-5.1)
[2023-11-24] MEDS: Levothyroxine 112 MCG Tab PO SCH (06:56)
[2023-11-24] MEDS: Allopurinol 100 MG Tab PO SCH (08:01)
[2023-11-24] MEDS: Metoprolol Succinate 50 MG Tab.ER PO SCH (08:01)
[2023-11-24] MEDS: Potassium Chloride 10 MEQ Tab.ER PO SCH (08:01)
[2023-11-24] MEDS: Losartan 25 MG Tab PO SCH (08:01)
[2023-11-24] MEDS: Tamsulosin 0.4 MG Cap.ER PO SCH ×2 (08:02→18:05)
[2023-11-24] MEDS: Cholecalciferol (Vitamin D3) 25 MCG Tab PO SCH (08:02)
[2023-11-24] MEDS: Calcitriol 0.25 MCG Cap PO SCH (08:02)
[2023-11-24] MEDS: Finasteride 5 MG Tab PO SCH (08:02)
[2023-11-24] MEDS: Aspirin 81 MG Tab.EC PO SCH (08:02)
[2023-11-24] MEDS: Sodium Bicarbonate 650 MG Tab PO SCH ×2 (08:02→21:05)
[2023-11-24] MEDS: atorvaSTATin 40 MG Tab PO SCH (08:02)
[2023-11-24] MEDS: Apixaban 2.5 MG Tab PO SCH ×2 (08:03→21:05)
[2023-11-24] MEDS: Bumetanide 1 MG Tab PO SCH (08:12)
[2023-11-24] MEDS: Insulin Glargine,Human Rec. Analog 100 Units/ML 3 ML Pen SUBCUT SCH (08:17)
[2023-11-24] MEDS: Insulin Regular, Human 100 Units/ML 3 ML Vial SUBCUT SCH ×3 (09:40→18:07)
[2023-11-24] MEDS: Piperacillin/Tazobactam 4.5 GM in Sodium Chloride 0.9% 100 ML IV SCH ×3 (09:47→21:31)
[2023-11-24] MEDS: Acetaminophen 325 MG Tab PO PRN (21:05)
[2023-11-25] MEDS: Levothyroxine 112 MCG Tab PO SCH (05:29)
[2023-11-25 06:03] LABS: BASOPHILS PERCENT AUTO 0.6 % (0.0-1.0); EOSINOPHILS ABSOLUTE AUTO 0.1 K/mm3 (0.0-0.4); EOSINOPHILS PERCENT AUTO 1.4 % (0.0-6.0); HEMOGLOBIN 12.2 gm/dl (14.0-18.0); IMMATURE GRAN ABSOLUTE AUTO 0.01 K/mm3 (0.00-0.05); IMMATURE GRAN PERCENT AUTO 0.2 % (0.0-0.4); LYMPHOCYTES ABSOLUTE AUTO 0.4 K/mm3 (1.0-4.8); LYMPHOCYTES PERCENT AUTO 7.8 % (24.0-44.0); MEAN CORPUSCULAR HEMOGLOBIN 31.5 pg (28.0-32.0); MEAN CORPUSCULAR HGB CONC 32.1 g/dl (32.0-36.0); MEAN CORPUSCULAR VOLUME 98.2 fl (83.0-99.0); MEAN PLATELET VOLUME 11.3 fl (9.4-12.4); MONOCYTES ABSOLUTE AUTO 0.4 K/mm3 (0.0-0.8); MONOCYTES PERCENT AUTO 8.2 % (0.0-8.0); NEUTROPHILS ABSOLUTE AUTO 4.1 K/mm3 (1.8-7.7); NEUTROPHILS PERCENT AUTO 81.8 % (41.0-71.0); PLATELET COUNT,PLT 110 K/mm3 (150-400); RED BLOOD CELL COUNT 3.87 M/mm3 (4.52-5.90); WHITE BLOOD CELL COUNT,WBC 5.02 K/mm3 (3.9-11.3)
[2023-11-25 06:27] LABS: ANION GAP 12.2 (5-15); BUN/CREATININE RATIO 23.7 (14-18); C-REACTIVE PROTEIN 3.1 mg/dL (<1.0); CALCIUM 8.6 mg/dL (8.5-10.1); EST CRCL DRUG DOSING (CG) 16.78 mL/min; MAGNESIUM 2.1 mg/dL (1.8-2.4); POTASSIUM,K 4.2 mEq/L (3.5-5.1)
[2023-11-25] MEDS: Insulin Glargine,Human Rec. Analog 100 Units/ML 3 ML Pen SUBCUT SCH (08:05)
[2023-11-25] MEDS: Metoprolol Succinate 50 MG Tab.ER PO SCH (08:06)
[2023-11-25] MEDS: Calcitriol 0.25 MCG Cap PO SCH (08:07)
[2023-11-25] MEDS: atorvaSTATin 40 MG Tab PO SCH (08:07)
[2023-11-25] MEDS: Tamsulosin 0.4 MG Cap.ER PO SCH (08:07)
[2023-11-25] MEDS: Losartan 25 MG Tab PO SCH (08:07)
[2023-11-25] MEDS: Apixaban 2.5 MG Tab PO SCH (08:07)
[2023-11-25] MEDS: Potassium Chloride 10 MEQ Tab.ER PO SCH (08:08)
[2023-11-25] MEDS: Cholecalciferol (Vitamin D3) 25 MCG Tab PO SCH (08:08)
[2023-11-25] MEDS: Bumetanide 1 MG Tab PO SCH (08:08)
[2023-11-25] MEDS: Sodium Bicarbonate 650 MG Tab PO SCH (08:08)
[2023-11-25] MEDS: Allopurinol 100 MG Tab PO SCH (08:08)
[2023-11-25] MEDS: Finasteride 5 MG Tab PO SCH (08:08)
[2023-11-25] MEDS: Insulin Regular, Human 100 Units/ML 3 ML Vial SUBCUT SCH (08:09)
[2023-11-25] MEDS: Aspirin 81 MG Tab.EC PO SCH (08:09)
[2023-11-25] MEDS ORDERED: Bumetanide 1 MG Tab PO SCH (09:00)
[2023-11-25] MEDS ORDERED: Bumetanide 1 MG/4 ML MDV IVPUSH ONE ×2 (09:00→10:15)
[2023-11-25] MEDS: Piperacillin/Tazobactam 4.5 GM in Sodium Chloride 0.9% 100 ML IV SCH (09:37)
[2023-11-25 12:24] VITALS: BP 120/97; PULSE 70
[2023-11-26] MEDS ORDERED: Bumetanide 1 MG Tab PO SCH (09:00)
== END 2023-11-25 13:05 | DRG 177 ==
LOC: JD.ED 04:53 → JD.MS 10:32
PROVIDERS: ADMIT Internal Medicine; ATTEND Internal Medicine
DX: J69.0 Pneumonitis due to inhalation of food and vomit (principal); J96.01 Acute respiratory failure with hypoxia; U07.1 COVID-19; N19 Unspecified kidney failure; I11.0 Hypertensive heart disease with heart failure; C20 Malignant neoplasm of rectum; J90 Pleural effusion, not elsewhere classified; E78.00 Pure hypercholesterolemia, unspecified; E11.9 Type 2 diabetes mellitus without complications; N18.4 Chronic kidney disease, stage 4 (severe); I13.0 Hypertensive heart and chronic kidney disease with heart failure and stage 1 through stage 4 chronic kidney disease, or unspecified chronic kidney disease; J98.11 Atelectasis; Z86.16 Personal history of COVID-19; Z66 Do not resuscitate; J18.9 Pneumonia, unspecified organism; W18.11XA Fall from or off toilet without subsequent striking against object, initial encounter; F03.90 Unspecified dementia, unspecified severity, without behavioral disturbance, psychotic disturbance, mood disturbance, and anxiety; I48.91 Unspecified atrial fibrillation; E78.5 Hyperlipidemia, unspecified; E11.69 Type 2 diabetes mellitus with other specified complication; G89.29 Other chronic pain; M54.9 Dorsalgia, unspecified; I50.9 Heart failure, unspecified; E11.22 Type 2 diabetes mellitus with diabetic chronic kidney disease; E03.9 Hypothyroidism, unspecified; R41.0 Disorientation, unspecified; E86.0 Dehydration; M19.90 Unspecified osteoarthritis, unspecified site; S00.12XA Contusion of left eyelid and periocular area, initial encounter; S00.11XA Contusion of right eyelid and periocular area, initial encounter; Z79.4 Long term (current) use of insulin; Z93.3 Colostomy status; Z79.01 Long term (current) use of anticoagulants; Z85.038 Personal history of other malignant neoplasm of large intestine; Z85.118 Personal history of other malignant neoplasm of bronchus and lung; Z86.73 Personal history of transient ischemic attack (TIA), and cerebral infarction without residual deficits; Z79.890 Hormone replacement therapy; Z79.899 Other long term (current) drug therapy; Z98.49 Cataract extraction status, unspecified eye; Z90.49 Acquired absence of other specified parts of digestive tract; Z98.890 Other specified postprocedural states; Z99.81 Dependence on supplemental oxygen; W01.0XXA Fall on same level from slipping, tripping and stumbling without subsequent striking against object, initial encounter
CPT/HCPCS: 0241U; 36415; 70450; 71045; 71250; 80048; 80053; 82947; 83735; 85025; 86140; 87641; 92610; 94667; 94668; 94760; 94761; 96360; 97110; 97116; 97162; 97530; 99285; 99223; 99232; 99233; 99239; A9270-GY; J1815-GY; J2543; J3490; J7030

== ENCOUNTER 2023-12-12 13:55 | Inpatient (IN) | payer MEDICARE, BC ==
[2023-12-12] MEDS ORDERED: Sodium Chloride 0.9% 10 ML Syringe FLUSH PRN (14:05)
[2023-12-12] MEDS ORDERED: Sodium Chloride 0.9% 1,000 ML IV ONE ×2 (14:05→15:15)
[2023-12-12] MEDS ORDERED: Atropine 0.4 MG/ML SDV IVPUSH ONE ×2 (14:08→22:27)
[2023-12-12] MEDS: Norepinephrine 4 MG in Dextrose 5% in Water 246 ML IV SCH ×6 (14:14→21:58)
[2023-12-12] MEDS ORDERED: cefTRIAXone 2 GM in Sodium Chloride 0.9% 100 ML IV ONE (14:21)
[2023-12-12] MEDS ORDERED: Piperacillin/Tazobactam 4.5 GM in Sodium Chloride 0.9% 100 ML IV ONE (14:22)
[2023-12-12 15:08] LABS: HEMATOCRIT 36.6 % (42.0-52.0); HEMOGLOBIN 11.7 gm/dl (14.0-18.0); MEAN CORPUSCULAR HEMOGLOBIN 31.5 pg (28.0-32.0); MEAN CORPUSCULAR VOLUME 98.7 fl (83.0-99.0); NRBC ABSOLUTE 0.02 (0.00-0.02); NRBC PERCENT 0.4 % (0.0-0.2); PLATELET COUNT,PLT 47 K/mm3 (150-400); RED BLOOD CELL COUNT 3.71 M/mm3 (4.52-5.90); WHITE BLOOD CELL COUNT,WBC 4.55 K/mm3 (3.9-11.3)
[2023-12-12 15:13] LABS: LACTIC ACID 1.5 mmol/L (0.4-2.0)
[2023-12-12 15:15] LABS: INR 1.8; PROTHROMBIN TIME 18.4 SECONDS (9.7-12.0)
[2023-12-12 15:17] LABS: PTT,PARTIAL THROMBOPLSTIN TIME 45.5 SECONDS (21.7-31.4)
[2023-12-12 15:27] LABS: A/G RATIO 0.6 (1-2); ALBUMIN 2.1 g/dl (3.4-5.0); ANION GAP 17.7 (5-15); C-REACTIVE PROTEIN 3.4 mg/dL (<1.0); CALCIUM 7.8 mg/dL (8.5-10.1); CREATININE 5.6 mg/dL (0.7-1.3); EST CRCL DRUG DOSING (CG) 8.99 mL/min; MAGNESIUM 2.8 mg/dL (1.8-2.4); POTASSIUM,K 5.7 mEq/L (3.5-5.1); PROTEIN TOTAL,TP 5.5 g/dl (6.4-8.2)
[2023-12-12 15:35] LABS: APPEARANCE,URINE SLT CLOUDY (Clear); BILIRUBIN,URINE NEGATIVE (Negative); COLOR,URINE YELLOW (Yellow); GLUCOSE,URINE NEGATIVE (Negative); KETONES,URINE TRACE (Negative); LEUKOCYTE ESTERASE,URINE NEGATIVE (Negative); NITRITE,URINE NEGATIVE (Negative); OCCULT BLOOD,URINE 3+ (Negative); PROTEIN,URINE 1+ (Negative); UROBILINOGEN,URINE 0.2 (0.2-1.0)
[2023-12-12 15:44] LABS: ANISOCYTOSIS 2+ MODERATE; BAND PERCENT MAN 1 % (0-10); BASOPHILS PERCENT MAN 0 (0.2-1.2); EOSINOPHILS PERCENT MAN 1 % (0.8-7.0); LYMPHOCYTES % ATYPICAL MANUAL 0 %; LYMPHOCYTES PERCENT MAN 7 % (20-40); MONOCYTES PERCENT MAN 3 % (2-10); POIKILOCYTOSIS 1+ SLIGHT
[2023-12-12 15:45] LABS: BURR CELLS 1+ SLIGHT; OVALOCYTES 1+ SLIGHT
[2023-12-12 15:46] LABS: PLATELET COUNT ESTIMATE DECREASED; TARGET CELLS 1+ SLIGHT
[2023-12-12 15:59] LABS: BACTERIA,URINE MODERATE /hpf (FEW); MUCUS,URINE FEW /hpf (FEW); RBC,URINE 40-50 /hpf (0-5); SQUAMOUS EPITHELIAL CELLS,UR 0-5 /hpf (0-5); WBC,URINE 0-5 /hpf (0-5)
[2023-12-12] MEDS ORDERED: HYDROmorphone 0.5 MG/0.5 ML Syringe IVPUSH ONE (16:25)
[2023-12-12] MEDS: Lactated Ringers 1,000 ML IV SCH (16:40)
[2023-12-12] MEDS ORDERED: Acetaminophen 325 MG Tab PO PRN (19:02)
[2023-12-12] MEDS ORDERED: Ondansetron 4 MG/2 ML SDV IV PRN (19:02)
[2023-12-12] MEDS: fentaNYL 100 MCG/2 ML SDV IVPUSH PRN ×2 (19:27→23:38)
[2023-12-12] MEDS: Tamsulosin 0.4 MG Cap.ER PO SCH (20:16)
[2023-12-12] MEDS ORDERED: Atropine 0.4 MG/ML SDV ONE (20:21)
[2023-12-12] MEDS ORDERED: Piperacillin/Tazobactam 4.5 GM in Sodium Chloride 0.9% 100 ML IV SCH (21:00)
[2023-12-13] MEDS: Norepinephrine 4 MG in Dextrose 5% in Water 246 ML IV SCH ×6 (01:01→05:23)
[2023-12-13] MEDS: Lactated Ringers 1,000 ML IV SCH (01:02)
[2023-12-13] MEDS: fentaNYL 100 MCG/2 ML SDV IVPUSH PRN ×3 (03:38→14:26)
[2023-12-13 05:26] LABS: MEAN CORPUSCULAR HEMOGLOBIN 32.2 pg (28.0-32.0); MEAN CORPUSCULAR HGB CONC 31.7 g/dl (32.0-36.0); NRBC ABSOLUTE 0.09 (0.00-0.02); NRBC PERCENT 1.7 % (0.0-0.2); PLATELET COUNT,PLT 53 K/mm3 (150-400); RED BLOOD CELL COUNT 4.13 M/mm3 (4.52-5.90); WHITE BLOOD CELL COUNT,WBC 5.26 K/mm3 (3.9-11.3)
[2023-12-13 05:33] LABS: HEMOGLOBIN 13.3 gm/dl (14.0-18.0); MEAN CORPUSCULAR VOLUME 101.7 fl (83.0-99.0)
[2023-12-13 05:49] LABS: A/G RATIO 0.6 (1-2); ALBUMIN 2.2 g/dl (3.4-5.0); ANION GAP 18.2 (5-15); BILIRUBIN TOTAL 0.9 mg/dL (0.2-1.0); BUN/CREATININE RATIO 20.5 (14-18); CALCIUM 7.4 mg/dL (8.5-10.1); CREATININE 5.6 mg/dL (0.7-1.3); EST CRCL DRUG DOSING (CG) 8.99 mL/min; PROTEIN TOTAL,TP 5.7 g/dl (6.4-8.2)
[2023-12-13 05:55] LABS: POTASSIUM,K 6.2 mEq/L (3.5-5.1)
[2023-12-13] MEDS ORDERED: Levothyroxine 112 MCG Tab PO SCH (06:00)
[2023-12-13 06:01] VITALS: PULSE 53
[2023-12-13] MEDS ORDERED: LORazepam 2 MG/ML SDV IVPUSH PRN (06:09)
[2023-12-13 10:50] VITALS: BP 48/31
[2023-12-13] MEDS: Tamsulosin 0.4 MG Cap.ER PO SCH (11:05)
[2023-12-13] MEDS ORDERED: Morphine 2 MG/ML SYRINGE IVPUSH PRN ×2 (16:57→17:04)
== END 2023-12-13 22:00 | disposition expired | DRG 871 ==
LOC: JD.ED 13:55 → JD.ICU 16:58
PROVIDERS: ADMIT Internal Medicine; ATTEND Student in an Organized Health Care Education/Training Program
PROC: 3E03329 Introduction of Other Anti-infective into Peripheral Vein, Percutaneous Approach (ICD-10-PCS; principal; 2023-12-12)
PROC: 3E033XZ Introduction of Vasopressor into Peripheral Vein, Percutaneous Approach (ICD-10-PCS; principal; 2023-12-12)
PROC: 02HV33Z Insertion of Infusion Device into Superior Vena Cava, Percutaneous Approach (ICD-10-PCS; principal; 2023-12-12)
DX: A41.9 Sepsis, unspecified organism (principal); J18.9 Pneumonia, unspecified organism; R65.21 Severe sepsis with septic shock; N17.0 Acute kidney failure with tubular necrosis; N18.4 Chronic kidney disease, stage 4 (severe); I13.0 Hypertensive heart and chronic kidney disease with heart failure and stage 1 through stage 4 chronic kidney disease, or unspecified chronic kidney disease; R64 Cachexia; Z51.5 Encounter for palliative care; I11.0 Hypertensive heart disease with heart failure; I50.9 Heart failure, unspecified; Z66 Do not resuscitate; E78.00 Pure hypercholesterolemia, unspecified; M54.9 Dorsalgia, unspecified; E87.5 Hyperkalemia; G89.29 Other chronic pain; M19.90 Unspecified osteoarthritis, unspecified site; E86.0 Dehydration; E11.22 Type 2 diabetes mellitus with diabetic chronic kidney disease; I48.91 Unspecified atrial fibrillation; E11.9 Type 2 diabetes mellitus without complications; R79.89 Other specified abnormal findings of blood chemistry; E03.9 Hypothyroidism, unspecified; Z86.73 Personal history of transient ischemic attack (TIA), and cerebral infarction without residual deficits; Z90.49 Acquired absence of other specified parts of digestive tract; Z98.49 Cataract extraction status, unspecified eye; Z86.16 Personal history of COVID-19; Z99.81 Dependence on supplemental oxygen; Z98.890 Other specified postprocedural states; Z79.890 Hormone replacement therapy; Z95.4 Presence of other heart-valve replacement; Z95.0 Presence of cardiac pacemaker; Z93.3 Colostomy status; Z68.26 Body mass index [BMI] 26.0-26.9, adult; Z79.01 Long term (current) use of anticoagulants; Z79.4 Long term (current) use of insulin; Z79.899 Other long term (current) drug therapy
CPT/HCPCS: 36415; 80053; 81001; 82947; 83605; 83690; 83735; 84484; 85007; 85027; 85610; 85730; 86140; 87040 ×2; 93005; 96365; 96366; 96368; 96375; 99285; C1751; C1758; J0461; J0696; J1170; J2543; J3490 ×3; J7030 ×2; J7060; J7120; 51702; 71045; 71045-26; 93010; 99238; J2270; J3010